=== PATIENT | male | born 1985 | race Caucasian/White ===

== ENCOUNTER 2023-07-13 18:57 | Emergency (ER) | payer SELFPAY ==
[2023-07-13] VITALS (20 sets, daily range): BP systolic 122–157; BP diastolic 86–108; PULSE 84–112; RESP 19–24; TEMP 37.1; O2SAT 92–99
--- NOTE | ~2023-07-13 | XR_ITS ---
EXAMINATION: XR chest 1V portable DATE: 07/13/2023 19:22 INDICATION: Shortness of breath. COVID. TECHNIQUE: frontal view of the chest was obtained. COMPARISON: None FINDINGS: The lungs are clear with no focal airspace opacities, pulmonary edema, pleural effusion or pneumothor ax. The cardiomediastinal silhouette is normal. Mild lower thoracic levocurvature. IMPRESSION: 1. No acute cardiopulmonary disease. Reviewed, dictated and finalized at location A. [facility]
--- NOTE | 2023-07-13 19:05 | ED.URI ---
HPI - URI/Sore Throat General Chief Complaint: Upper Respiratory Infection Stated Complaint: Covid Time Seen by Provider: 07/13/23 19:03 Source: patient Mode of arrival: ambulatory Limitations: no limitations History of Present Illness HPI Narrative: patient is a 38-year-old male with shortness of breath and 2 home positive COVID tests. MD elicited complaint: cough, nasal congestion and sinus pain Onset (ago): day(s) (4) Consistency: constant Severity: moderate Pain scale (0-10): 5 Description of mucous: clear Able to tolerate fluids by mouth: Yes Exacerbating factors: nothing Relieving factors: nothing Context: sick contacts ( roommate with same symptoms and COVID tests positive as well) Associated symptoms: chills, myalgias, headache, nasal congestion and shortness of breath Treatments prior to arrival: none Related Data Allergies Allergy/AdvReac Type Severity Reaction Status Date / Time aspirin Allergy Unknown Verified 07/13/23 20:49 chloropyramine AdvReac Unknown Verified 07/13/23 20:49 chlorpheniramine AdvReac Unknown Verified 07/13/23 20:49 ciprofloxacin [From Cipro] AdvReac Unknown Verified 07/13/23 20:49 decamethonium AdvReac Unknown Verified 07/13/23 20:49 haloperidol [From Haldol] AdvReac Unknown Verified 07/13/23 20:49 ketamine AdvReac Unknown Verified 07/13/23 20:49 ketorolac [From Toradol] AdvReac Unknown Verified 07/13/23 20:49 metoclopramide [From Reglan] AdvReac Unknown Verified 07/13/23 20:49 metronidazole [From Flagyl] AdvReac Unknown Verified 07/13/23 20:49 promethazine AdvReac Unknown Verified 07/13/23 20:49 quetiapine AdvReac Unknown Verified 07/13/23 20:49 Review of Systems Review of Systems: All systems reviewed & are unremarkable except as noted in HPI and below Constitutional: Constitutional: Reports no additional constitutional complaints Eyes: Eyes: Reports no additional eye complaints ENT: Reports system reviewed and no additional complaints, except as documented Cardiovascular: Cardiovascular: Reports no additional cardiovascular complaints Respiratory: Respiratory: Reports no additional respiratory complaints Gastrointestinal: Gastrointestinal: Reports no additional gastrointestinal complaints Genitourinary: Genitourinary: Reports no additional male genitourinary complaints Musculoskeletal: Musculoskeletal: Reports no additional musculoskeletal complaints Integumentary/Breasts: Skin/Breast: Reports system reviewed and no additional complaints, except as docu Neurologic: Reports system reviewed and no additional complaints, except as documented Psychiatric: Psychiatric: Reports no additional psychiatric complaints Endocrine: Endocrine: Reports no additional endocrine complaints Hematologic/Lymphatic: Hematologic/Lymphatic: Reports no additional hematologic/lymphatic complaints Allergic/Immunologic: Allergic/Immunologic: Reports no additional allergic/immunologic complaints Exam Const: General: healthy appearing Nutritional Appearance: well nourished Orientation/consciousness: patient oriented x3 HENMT: Head: normal to inspection Ears: external ears normal Face/Nose/Sinus: Normal external nose present Eyes: Conjunctivae: conjunctivae normal Pupils: Equal, round and reactive pupils present EOM: EOMs intact bilaterally Neck: Neck: normal visual inspection Chest: Chest palpation & inspection: normal inspection of the chest Resp: Effort & Inspection: normal respiratory effort Auscultation: clear to auscultation bilaterally, no crackles, no rales and no rhonchi Cardio: Rate: regular rate Rhythm: regular rhythm Heart sounds: no murmurs GI: Inspection: non-distended GI Palp: Yes Soft to palpation, No Tenderness to palpation present (GI) and No Guarding due to palpation present (GI) Auscultation: normal bowel sounds : General: Yes bladder normal to palpation Back/Spine/Pelvis: Back: no CVA tenderness Skin: General skin exam: normal color Rashes: no rashe
[2023-07-13 19:56] LABS: Hemoglobin 13.9 g/dL (14.0-18.0); Mean Corpuscular HGB Conc 33.1 g/dL (32.0-36.0); Mean Corpuscular Hemoglobin 28.7 pg (27.0-31.0); Mean Corpuscular Volume 86.6 fL (78.0-102.0); Mean Platelet Volume 10.4 fl (8.7-11.0); Platelet Count Result 164 K/mm3 (150-420); Red Blood Count 4.85 M/mm3 (4.70-6.10); Red Cell Distribution Width 14.5 % (11.6-14.4); White Blood Count 4.3 K/mm3 (4.8-10.8)
[2023-07-13 20:11] LABS: Alanine Aminotransferase 32 U/L (16-63); Albumin Level 3.4 g/dL (3.4-5.0); Alkaline Phosphatase 138 U/L (46-116); Anion Gap 12 mmol/L (8-16); Aspartate Amino Transferase 11 U/L (15-37); Bilirubin,Total 0.9 mg/dL (0.00-1.00); Blood Urea Nitrogen 11 mg/dL (7-18); Calcium 8.5 mg/dL (8.5-10.1); Carbon Dioxide 27 mmol/L (21-32); Chloride 103 mmol/L (98-108); Estimated CRCL calculation 98 ml/min; Estimated Glomerular Filt Rate > 60; Glucose 122 mg/dL (70-99); Osmolality Calculated 294 mOsm/kg (285-295); Sodium 142 mmol/L (136-145); Total Protein 6.3 g/dL (6.4-8.2)
[2023-07-13 20:16] LABS: Atypical Lymphocytes Present; Band Neutrophils Percent 0 % (0-6); Eosinophils Absolute Manual 0.08 K/mm3 (0.02-0.5); Eosinophils Percent Manual 2 % (1-6); Giant Platelets Present; Large Platelets Present; Lymphocytes Absolute Manual 0.38 K/mm3 (1.1-4.5); Lymphocytes Percent Manual 9 % (18-44); Monocytes Absolute Manual 0.43 K/mm3 (0.1-0.90); Monocytes Percent Manual 10 % (3-9); Neutrophils Absolute Manual 3.39 K/mm3 (1.3-6.7); Neutrophils Percent Manual 79 % (46-73); Platelet Estimate Adequate (Adequate); Schistocytes None Seen (NORMAL); Total Cells Counted 100
--- NOTE | 2023-07-13 20:27 | PC.NURSE ---
pt resting , no needs at this time. awaiting lab results.
[2023-07-13 20:34] LABS: Influenza A QL RT-PCR Negative (Negative); Influenza B QL RT-PCR Negative (Negative); SARS-CoV-2 RNA PCR Positive (Negative)
[2023-07-13 20:39] LABS: RSV RNA, RT-PCR Negative (Negative)
[2023-07-13] MEDS: ALBUTEROL SULFATE (*SP) INHALER 2 PUFF INHALATION (20:52)
[2023-07-13] MEDS: POTASSIUM CHLORIDE 20 MEQ PACKET (FOR LIQUID) 40 MEQ PO (20:59)
== END 2023-07-13 21:08 | disposition home or self-care (01) ==
PROVIDERS: Emergency Provider Emergency Medicine
DX: U07.1 COVID-19 (principal)
CPT/HCPCS: 36415; 71045; 80053; 85025; 87637; 94640; 99283; A9270

== ENCOUNTER 2025-03-29 17:05 | Inpatient (IN) | payer MEDICARE, SELFPAY ==
--- NOTE | ~2025-03-29 | CT_ITS ---
EXAMINATION: CT abdomen pelvis wo con DATE: 03/29/2025 20:03 INDICATION: crohn's disease, + blood in stool TECHNIQUE: Computed tomography (CT) of the abdomen and pelvis was performed without intravenous contr ast. Automated exposure control and iterative reconstruction technique were employed. The dose-length product was 1190.45 mGy-cm. COMPARISON: None. FINDINGS: Lower thorax: Mild bilateral lower lobe scarring. Liver: Normal. Biliary/Gallbladder: Gallbladder is normal. No bile duct dilation. Pancreas: No mass or duct dilation. Spleen: Normal. Adrenals:No mass. Kidneys: No suspicious mass, obstructing stone, or hydronephrosis. GI tract: No small or large bowel dilation. Surgically absent appendix. Sigmoid diverticulosis. Very mild inflammatory stranding surrounding a distal sigmoid diverticulum in the deep pelvis, with very m inimal associated pericolonic stranding. Status post right colectomy. Uncomplicated anastomosis. Mesentery/Peritoneum: No ascites, mass, or free air. Retroperitoneum: No mass. Pelvis: Pelvic organs are within normal limits. Soft Tissues: Soft tissues and body wall unremarkable. Bones: No acute osseous finding. IMPRESSION: Very mild diverticular and pericolonic inflammatory change at the distal sigmoid in the deep pelvis, which may represent early/mild diverticulitis. Otherwise, no acute abdominopelvic process detected Reviewed, dictated and finalized at location K. IMPRESSION: Very mild diverticular and pericolonic inflammatory change at the distal sigmoi d in the deep pelvis, which may represent early/mild diverticulitis. Otherwise, no acute abdominopelvic process detected
--- NOTE | ~2025-03-29 | MR_ITS ---
EXAMINATION: MR MRCP wo/w con/w 3D wo ind DATE: 03/30/2025 14:04 INDICATION: Primary sclerosing cholangitis TECHNIQUE: Magnetic resonance imaging (MRI) of the abdomen was performed without and with 20 mL Multi maricarmen intravenous contrast. Sequences included coronal T2-weighted SS-FSE, coronal T2-weighted FS SS- FSE, coronal T2-weighted FS FIESTA, axial T2-weighted FS FIESTA, axial T2-weighted FIESTA, sagittal T 2-weighted SS-FSE, axial T1-weighted dual-echo FSPGR, axial T2-weighted SS-FSE, axial T1-weighted LAV A, axial T2-weighted STIR FSE. Thick-slab T2-weighted FRFSE-XL images were obtained for magnetic reso nance cholangiopancreatography (MRCP). Rotating maximum intensity projection 3-D reconstructions of t he volumetric data were created by the technologist. Postcontrast sequences included a time course of axial T1-weighted LAVA. COMPARISON: None. FINDINGS: ABDOMEN MRI: Heart size is normal. No pericardial or pleural effusion. Mild discoid atelectasis in the bilateral l ower lobes. Status post cholecystectomy. Liver, spleen, pancreas, bilateral adrenal glands and kidney s are normal. Postoperative change of right hemicolectomy with ileocolic anastomosis in the right abd omen. No bowel obstruction or evident abnormal bowel wall thickening. Bones are unremarkable with nor mal marrow signal throughout. ABDOMEN MRCP: Common bile duct measures up to 6 mm in maximal diameter which is within normal limits particularly p ost cholecystectomy. The common bile duct tapers smoothly with no evident choledocholithiasis. Intrah epatic biliary tree appears normal with no evident ductal dilation. IMPRESSION: 1. Status post cholecystectomy and right hemicolectomy with ileocolic anastomosis. Otherwise unremark able MRI/MRCP. Reviewed, dictated and finalized at location A. IMPRESSION: 1. Status post cholecystectomy and right hemicolectomy with ileocolic anastomos is. Otherwise unremarkable MRI/MRCP.
--- OUTSIDE RECORDS SUMMARY | 2025-03-29 17:07 | XMS_ITS | Clinical Summary ---
Author Organization [facility] Address [address] [place] [address] Care Team Providers Care Senior Process Engineer Name Role Phone Jaguar Vital MD Primary Care Provider Allergies Active Allergy Reactions Criticality Noted Date Comments Aspirin Nausea Only 12/15/2014 Dicyclomine 01/10/2018 Reaction: Out of body experience; psychosis Ciprofloxacin (Bulk) Diarrhea Low 08/30/2016 Pt requested this be added to his allergies Prochlorperazine 06/26/2020 Haloperidol Lactate 06/26/2020 Metronidazole Diarrhea Low 08/30/2016 Pt requested this be added to his allergy list Promethazine Other (See Comments) 10/15/2017 Pt has a manic reaction Quetiapine Other (See Comments) Low 01/18/2020 Medications escitalopram oxalate (LEXAPRO) 10 MG tablet TAKE 1 TABLET BY MOUTH EVERY DAY 0 Active famotidine (PEPCID) 20 mg tablet Take by mouth daily. Active pregabalin (LYRICA) 75 MG capsule Take by mouth. Active trazodone (DESYREL) 50 MG tablet TAKE 1/2 TABLET AT NIGHT NEEDED FOR INSOMNIA 0 Active hydrOXYzine (ATARAX) 25 MG tablet Take 25 mg by mouth. 0 Active bismuth subsalicylate (PEPTO-BISMOL) 262 mg/15 mL suspension Take 15 mL by mouth. Active calcium carbonate (TUMS) 200 mg calcium (500 mg) chewable tablet Chew 2 tablets. Active loperamide (IMODIUM A-D) 2 mg tablet Take 4 mg by mouth. Active ondansetron (ZOFRAN) 8 MG tablet Take 8 mg by mouth. 0 Active duloxetine (CYMBALTA) 60 MG capsule TAKE 1 CAPSULE BY MOUTH EVERY DAY 0 Active morphine (MS CONTIN) 15 MG 12 hr tablet Take 1 tablet (15 mg total) by mouth 2 (two) times a day. accept 5 Active pregabalin (LYRICA) 150 MG capsule Take 1 capsule (150 mg total) by mouth 3 times a day. 5 Active morphine (MS CONTIN) 15 MG 12 hr tabletIndications: Chronic, continuous use of opioids,Other chronic pain Take 1 tablet (15 mg total) by mouth 2 (two) times a day for 30 days. 60 tablet 5 04/09/20 25 Active Active Problems Problem Noted Date Diagnosed Date Crohn's disease (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 v28) 12/30/2012 06/27/2020 Encounters Date Type Department Care Team Description 03/10/2025 Telephone [facility] [address] [facility] [address] [place] [address] [facility] Change from Last 3 Months Immunizations Immunization Administration Dates Next Due Influenza >= 6 months IM 06/28/2020(Defe rred: Patient Refused),06/24/2020(Deferred: Patient Refused) Social History Tobacco Use Types Packs/Day Years Used Date Smoking Tobacco: Former Smokeless Tobacco: Never Comments:1 cig/ 2 months Alcohol Use Standard Drinks/Week Comments Yes 0 (1 standard drink = 0.6 oz pur e alcohol) rarely Sex and Gender Information Value Date Recorded Sex Assigned at Male 06/22/2020 5:41 AM EDT Legal Sex Male 2:11 AM EDT Gender Identity Transgender Female 02/15/2025 11 :53 AM EDT Sexual Orientation Pansexual 02/15/2025 11 :53 AM EDT Last Filed Vital Signs Vital Sign Reading Time Taken Comments Blood Pressure 137/89 01/01/2021 12:34 AM EDT Pulse 79 01/01/2021 12:34 AM EDT Temperature 36.7 C (98 F) 01/01/2021 12:34 AM EDT Respiratory Rate 16 01/01/2021 12:34 AM EDT Oxygen Saturation 97% 01/01/2021 12:34 AM EDT Inhaled Oxygen Concentration - - Weight 95.1 kg (209 lb 8.8 oz) 12/31/2020 10:12 PM EDT Height 182.9 cm (6') 12/31/2020 10:12 PM EDT Body Mass Index 28.42 12/31/2020 10:12 PM EDT Plan of Treatment Upcoming Encounters Date Type Department Care Team (Late st Contact Info) Description 04/11/2025 1:20 PM EDT Office Visit [facility] [address] [facility] [address] [place] [address] Charles Jurado MD [address] [facility] [address] [place] [address] Juan Manuel Transfer-follow up Health Maintenance Due Date Last Done Comments HIV 1984 Hepatitis C antibody 1984 DTaP/Tdap/Td vaccines (1 - Tdap) 1995 HPV vaccines (1 - 3-dose series) 1999 Hepatitis A vaccines (1 of 2 - Risk 2-dose series) 2003 Hepatitis B vaccines (1 of 3 - 19+ 3-dose series) 2003 HPV TEST 2009 Influenza vaccines (#1) 2025 07/01/2019 Hib vaccines Aged Out No longer eligi ble based on patient's age to complete this topic Meningococcal ACWY vaccines Aged Out No longer eligible based on patient's age to complete this topic Pneumococcal vaccines 0-49 yrs Aged Out No longer eligible based on patient's age to complete this topic Polio vaccines Aged Out No longer nicolasa gible based on patient's age to complete this topic Insurance MEDICARE PART A AND B [employer] MEDICARE HMO (MEDICARE ADVANTAGE PLAN)-OUT [place] [address] Advance Directives * Full Code (Latest Code Status on File) Date Activated Date Inactivated Comments 06/27/2020 12:20 AM 06/28/2020 10:56 PM * Full Code Date Activated Date Inactivated Comments 06/22/2020 6:44 AM 06/24/2020 9:15 PM Care Teams Senior Process Engineer Relationship Specialty Start Date End Date Jaguar Vital MD [address] [place], [place] [id number] PCP - General 05/10/20
--- OUTSIDE RECORDS SUMMARY | 2025-03-29 17:07 | XMS_ITS | Continuity of Care Document ---
Author Organization [facility] Address [address] [place] [address] Phone Care Team Providers Care Finisher Card Tender Name Role Phone Faraz Blood MD, FACC Unavailable Unavaila ble Allergies, Adverse Reactions, Alerts Substance Reaction Status Criticality aspirin dizziness, off balance Active No In formation WARNIN allergy(ies) could not be collected because the type is not supported. Please contact the source practice for further details. Medications Medication Instructions Dosage Effective Dates (start - stop) Status Comments Asacol 400 mg Tab Take one tablet by m outh every eight hours - Active Procedures Procedure Date Offic/outpt E&m Estab Low-mod 7 Offic/outpt E&m Estab Low-mod 6 Preven Meds E m Estab Pt;Est Patient 18- 39 Prevent Ua Dip Stik/tablt;wo MicrUrinalysis Routine Venipunct/finger/Blood Draw Advance Directives Directive Yes / No Effective Date File Name No Information Encounters Encounter Description Practice Location Reason(s) For Visit Diagnoses Date Provider Providers Copied on Encounter [facility], [address] [place], [place], [id number], tel:[phone] [facility] No Information 7 Caitie Ruth. [address] [place], [place], [id number], [place]. tel:[phone] Offic/outpt E&m Estab Low-mod [facility], [address] [place] [address], [id number], tel:[phone] [facility] Shoulder PainCervicalgia 3200 7 No Information Offic/outpt E&m Estab Low-mod [facility], [address] [place] [address], [id number], tel:[phone] [facility] Asthma W/o Status AsthmRegional Enteritis NosElevated CRP (C-reactive Prot)Cervicalgia Sep-2 2-200 6 No Information Referring Provider: Rupali Persaud, [address] [place] [address], [id number] . tel:[phone] Preven Meds E m Estab Pt;Est Patient 18-39 Prevent [facility], [address] [place] [address], [id number], tel:[phone] [facility] No Information Aug-2 1-200 5 No Information [facility], [address] [place] [address], [id number], tel:[phone] [facility] No Information Aug- 4-200 5 No Information [facility], [address] [place] [address], [id number], tel:[phone] [facility] No Information 8200 2 No Information Family History Family Member Type Diagnosis Age At Onset No Information Immunizations Vaccine Date Status Comments MMR administered Source: [facility] unization Record MCV4 administered Source: [facility] unization Record Payers Payer name Insurance type Covered alliance party ID Authoriza tion(s) No Information Social History Type Description Quantity Date Captured Comments Sex Male Smoking Status No Information Chief Complaint And Reason For Visit No Information Reason For Referral Reason For Referral No Information History Of Present Illness Encounter Date Complaint History Of Prese nt Illness No Information Functional Status Date Functional Assessmen t No Information Instructions Date Instruction Additional Infor mation No Information Assessments Type Assessment Date No Information Patient Care Teams Name Effective Dates (start - stop) Status Members No Information
[2025-03-29 17:08] VITALS: BP 176/98; PULSE 84; RESP 16; TEMP 36.6; O2SAT 100
--- OUTSIDE RECORDS SUMMARY | 2025-03-29 17:08 | XMS_ITS | Clinical Summary ---
Author Organization [facility] Address [address] [facility] [place] [address] Care Team Providers Care It Sales Executive Name Role Phone Unavailable Primary Care Provider Unavailabl e Allergies Active Allergy Reactions Criticality Noted Date Comments Aspirin Other Medium 01/20/2018 Ciprofloxacin Diarrhea Low 01/20/2018 Dicyclomine Other Medium 01/20/2018 Metronidazole Diarrhea Low 01/20/2018 Medications azithromycin (ZITHROMAX) 250 mg tablet Take 1 tablet (250 mg total) by mouth daily. 01/21/2018 Active Social History Tobacco Use Types Packs/Day Years Used Date Smoking Tobacco: Never Smokeless Tobacco: Never Alcohol Use Standard Drinks/Week Comments No 0 (1 standard drink = 0.6 oz pur e alcohol) Sex and Gender Information Value Date Recorded Sex Assigned at Not on file Legal Sex Male 5:34 AM EST Gender Identity Not on file Sexual Orientation Not on file Plan of Treatment Not on file
--- OUTSIDE RECORDS SUMMARY | 2025-03-29 17:08 | XMS_ITS | Patient Health Record ---
Author Organization [facility] Address [address] [place] [address] Care Team Providers Care Service Tech Name Role Phone Lucero Elias Unavailable [phone] Gwendolyn Jurado Unavailable [phone] Reason For Referral No Information Medications Medication SIG (Take, Route, Frequency, Duration) Notes Start Date End Date Status Morphine Sulfate ER 15 MG TAKE 1 TABLET BY MOUTH TWICE DAILY. 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 Problem Chronic pain (23316202) Other chronic pain (G89.29) Active confirmed Problem Crohn's disease of large bowel (5402153) Crohn's disease of large intestine with unspecified complications (K50.119) Active confirmed Problem Crohn's disease (88079905) Crohn's disease, unspecified, with other complication (K50.918) Active confirmed Problem Adverse reaction caused by drug (70368697) Adverse effect of antineoplastic and immunosuppressive drugs, initial encounter (T45.1X5A) Active confirmed Problem High risk drug monitoring status (430572923) supervisor intermediates (current) use of opiate analgesic (Z79.891) Active confirmed Problem Neuropathic pain (212711679) Neuropathic pain (M79.2) Active confirmed Problem Acute pain of ri ght knee (M25.561) Active confirmed Problem Generalized abdominal pain (791086478) Abdominal pain, generalized (R10.84) Active confirmed Vital Signs Blood pressure diastolic 88 mm Hg 08/03/2024 Blood pressure systolic 140 mm Hg 08/03/2024 Encounters Encounter Location Date Provider Diagnosis [facility] [address] [place] [id number] 11/22/2024 Lucero Elias Abdominal pain, generalized R10.84 ; Other chronic pain G89.29 ; Drug-induced polyneuropathy G62.0 and Adverse effect of antineoplastic and immunosuppressive drugs, initial encounter T45.1X5A [facility] [address] [place] [id number] 09/28/2024 Lucero Elias Abdominal pain, generalized R10.84 ; Other chronic pain G89.29 ; Drug-induced polyneuropathy G62.0 and Adverse effect of antineoplastic and immunosuppressive drugs, initial encounter T45.1X5A [facility] [address] [place] [phone] 08/03/2024 Gwendolyn Jurado Drug-induced polyneuropathy G62.0 ; Other chronic pain G89.29 ; Adverse effect of antineoplastic and immunosuppressive drugs, initial encounter T45.1X5A ; Abdominal pain, generalized R10.84 and supervisor intermediates (current) use of opiate analgesic Z79.891 [facility] [address] [place] [phone] 06/08/2024 Gwendolyn Jurado Acute pain of right knee M25.561 ; Other chronic pain G89.29 and Abdominal pain, generalized R10.84 Assessments Encounter Date Diagnosis (ICD Code) Assessment Notes Treatment Notes Treatment Clinical Notes Section Notes 06/08/2024 Other chronic pain (ICD-10 - G89.29) 06/08/2024 Acute pain of right knee (ICD-10 - M25.561) 08/03/2024 Drug-induced polyneuropathy (ICD-10 - G62.0) 08/03/2024 Other chronic pain (ICD-10 - G89.29) 09/28/2024 Other chronic pain (ICD-10 - G89.29) 09/28/2024 Abdominal pain, generalized (ICD-10 - R10.84) 11/22/2024 Other chronic pain (ICD-10 - G89.29) 11/22/2024 Abdominal pain, generalized (ICD-10 - R10.84) 09/28/2024 Drug-induced polyneuropathy (ICD-10 - G62.0) 11/22/2024 Drug-induced polyneuropathy (ICD-10 - G62.0) 08/03/2024 Adverse effect of antineoplastic and immunosuppressive drugs, initial encounter (ICD-10 - T45.1X5A) 06/08/2024 Abdominal pain, generalized (ICD-10 - R10.84) 08/03/2024 Abdominal pain, generalized (ICD-10 - R10.84) 09/28/2024 Adverse effect of antineoplastic and immunosuppressive drugs, initial encounter (ICD-10 - T45.1X5A) 11/22/2024 Adverse effect of antineoplastic and immunosuppressive drugs, initial encounter (ICD-10 - T45.1X5A) 08/03/2024 supervisor intermediates (current) use of opiate analgesic (ICD-10 - Z79.891) Plan Of Treatment No Information Insurance Providers Payer Name Payer Address Payer Phone Subscriber Number Group Number Insured Name Patient Relationship to Insured Coverage Start Date Coverage End Date [employer] Plus [address] [address] [place] [address] [id number] GWENDOLYN BAUTISTA Self - patient is the insured
[2025-03-29 18:54] VITALS: BP 154/106; PULSE 83; RESP 17; O2SAT 98
--- NOTE | 2025-03-29 19:04 | ED.GIBLEED ---
HPI - GI Bleed General Chief complaint: GI Bleed <Emelina Gerard [employer] SALESPERSON - Last Filed: 03/29/25 19:07> Stated complaint: GI bleed- I have crohn's disease. <Emelina Gerard [employer] SALESPERSON - Last Filed: 03/29/25 19:07> Time Seen by Provider: 03/29/25 19:00 <Emelina Gerard [employer] SALESPERSON - Last Filed: 03/29/25 19:07> Focused HPI: Patient is a 40-year-old male who presents to the ER with rectal bleeding and abdominal pain. He reports he has a history of Crohn's disease and was hospitalized approximately 1 week ago for similar symptoms. Patient reports he has major bleeding in his stool and is passing clots. He endorses pain is left lower quadrant, ?where my anastomosis is located. Patient endorses a history of Crohn's, testicular cancer, chronic narcotic use, and PSE-an autoimmune disease. He denies any urinary symptoms, recent fevers, chest pain, or shortness of breath. GENERAL: Well-appearing, well-nourished, and in no acute distress. HEAD: Normocephalic, atraumatic. CHEST: Clear to auscultation. ?No respiratory distress. HEART: Regular rate and rhythm.? NEURO: ?Alert and oriented x3. Patient screened in triage and initial orders placed.? ?Additional care and disposition to be based upon?diagnostic testing and treatment. <Emelina Gerard [employer] SALESPERSON - Last Filed: 03/29/25 19:07> Focused HPI: Patient is a 40-year-old male who presents to the ER with rectal bleeding and abdominal pain. He reports he has a history of Crohn's disease and was hospitalized approximately 1 week ago for similar symptoms. Patient reports he has major bleeding in his stool and is passing clots. He endorses pain is left lower quadrant, ?where my anastomosis is located. Patient endorses a history of Crohn's, testicular cancer, chronic narcotic use, and PSE. He denies any urinary symptoms, recent fevers, chest pain, or shortness of breath. GENERAL: Well-appearing, well-nourished, and in no acute distress. HEAD: Normocephalic, atraumatic. CHEST: Clear to auscultation. ?No respiratory distress. HEART: Regular rate and rhythm.? NEURO: ?Alert and oriented x3. Patient screened in triage and initial orders placed.? ?Additional care and disposition to be based upon?diagnostic testing and treatment. <Joanne Pool PA-C - Last Filed: 03/29/25 23:59> Related Data Home medications: Home Medications ?Medication ?Instructions ?Recorded ?Confirmed ?Last Taken ?Type estradiol 2 mg tablet 4 mg PO BID 03/30/25 03/30/25 03/29/25 History famotidine 20 mg tablet 20 mg PO BID PRN gastric reflux 03/30/25 03/30/25 Unknown History hydroxyzine HCl 25 mg tablet 25 mg PO Q6H PRN anxiety 03/30/25 03/30/25 03/28/25 History morphine 15 mg tablet,extended 15 mg PO Q12H PRN pain (scale 03/30/25 03/30/25 03/29/25 History release score 7-10) omeprazole 40 mg capsule,delayed 40 mg PO DAILY 03/30/25 03/30/25 03/28/25 History release oxycodone 5 mg tablet 5 mg PO BID PRN pain 03/30/25 03/30/25 03/28/25 History prednisone 20 mg tablet 20 mg PO DAILY 03/30/25 03/30/25 03/28/25 History pregabalin 150 mg capsule 150 mg PO TID 03/30/25 03/30/25 03/29/25 History progesterone 100 mg PO DAILY 03/30/25 03/30/25 03/29/25 History spironolactone 50 mg tablet 100 mg PO DAILY 03/30/25 03/30/25 03/29/25 History tizanidine 4 mg tablet 4 mg PO Q8H 03/30/25 03/30/25 Unknown History trazodone 50 mg tablet 50 mg PO HS PRN sleep 03/30/25 03/30/25 Unknown History <Emelina Gerard, EFREN - Last Filed: 03/29/25 19:07> Allergies/Adverse reactions: Allergies Allergy/AdvReac Type Severity Reaction Status Date / Time dicyclomine (From Bentyl) Allergy Severe Agitated Verified 03/30/25 03:06 aspirin Allergy Unknown Verified 07/13/23 20:49 chloropyramine AdvReac Unknown Verified 07/13/23 20:49 chlorpheniramine AdvReac Unknown Verified 07/13/23 20:49 ciprofloxacin (From Cipro) AdvReac Unknown Verified 07/13/23 20:49 decamethonium AdvReac Unknown Verified 07/13/23 20:49 haloperidol (From Haldol) AdvReac Unknown Verified 07/13/23 20:49 ketamine AdvReac Unknown Verified 07/13/23 20:49 ketorolac (From Toradol) AdvReac Unknown Verified 07/13/23 20:49 metoclopramide (From Reglan) AdvReac Unknown Verified 07/13/23 20:49 metronidazole (From Flagyl) AdvReac Unknown Verified 07/13/23 20:49 promethazine AdvReac Unknown Verified 07/13/23 20:49 quetiapine AdvReac Unknown Verified 07/13/23 20:49 <Emelina Gerard APRN - Last Filed: 03/29/25 19:07> Review of Systems Review of Systems: All systems reviewed & are unremarkable except as noted in HPI and below <Joanne Pool PA-C - Last Filed: 03/29/25 23:59> PMFSH Past Medical History Medical History: Medical History (Updated 03/29/25 @ 23:56 by Joanne Pool PA-C) Crohn disease <Emelina Gerard APRN - Last Filed: 03/29/25 19:07> Surgical History Surgical History: Surgical History (Updated 03/29/25 @ 23:00 by Joanne Pool PA-C) History of partial colectomy <Emelina Gerard APRN - Last Filed: 03/29/25 19:07> Social History Social History: Social History Smoking status: Never smoker Second hand tobacco smoke exposure: No Alcohol intake: never Substance use: never Substance use type: does not use Do You Feel Safe in your Home?: Yes Lack of Transportation: No Lack of Food: Never True Current Housing: I Have Housing Concerned About Future Housing: No Difficulty Paying Gas/Electric Bills: No Difficulty Paying for Meds: No Currently Unemployed: No Education: Master's Degree or Higher Difficulty w/ Childcare or Family Care: No Spiritual care concerns: No <Emelina Timo Gerard APRN - Last Filed: 03/29/25 19:07> Exam Narrative: GENERAL: Well-appearing, well-nourished, and in no acute distress. HEAD: Normocephalic, atraumatic. EYES: EOMI. CHEST: Clear to auscultation. No respiratory distress. No wheezes rales or rhonchi HEART: Regular rate and rhythm. No murmur heard. Normal peripheral pulses. ABDOMEN: Soft, nondistended, normal active bowel sounds. Tender to palpation in the left lower quadrant without guarding EXTREMITIES: Normal range of motion. No edema. SKIN: Warm, dry, no rash. NEURO: No focal deficits. Alert and oriented x3. PSYCH: Normal mood and affect RECTAL: No active bleeding. Hemoccult positive <Joanne Pool PA-C - Last Filed: 03/29/25 23:59> Course Course Emergency Course: Patient updated on his workup and recommendation for admission <Joanne Pool PA-C - Last Filed: 03/29/25 23:59> HUMAN RESOURCE INTERN/PA Physician Supervision This visit was performed by both a physician and an APC. I performed all aspects of the MDM as documented. <Randal Fontenot MD - Last Filed: 03/30/25 07:08> Consultations Consultation #1: Spoke with Dr. Christopher about patient and workup. Recommends Solu-Medrol 60mg daily; check c. diff, stool calprotectin, and crp. He will see him in the morning <Joanne Pool PA-C - Last Filed: 03/29/25 23:59> Date: 03/29/25 <ZACKERY Beckman Last Filed: 03/29/25 23:59> Consultation #2: Spoke with hospitalist about patient and workup who accepts admission <Joanne Pool PA-C - Last Filed: 03/29/25 23:59> Date: 03/29/25 <Joanne Pool PA-C - Last Filed: 03/29/25 23:59> Vital Signs Vital signs: Vital Signs Temperature 36.6 C 03/29/25 17:08 Pulse Rate 84 03/29/25 17:08 Respiratory Rate 16 03/29/25 17:08 Blood Pressure 176/98 H 03/29/25 17:08 Pulse Oximetry 100 03/29/25 17:08 Oxygen Delivery Room Air 03/29/25 17:08 Temperature 36.3 C L 03/30/25 05:14 Pulse Rate 75 03/30/25 05:14 Respiratory Rate 18 03/30/25 05:14 Blood Pressure 109/65 03/30/25 05:14 Pulse Oximetry 97 03/30/25 05:14 Oxygen Delivery Room Air 03/29/25 17:08 <Emelina Gerard, [employer] SALESPERSON - Last Filed: 03/29/25 19:07> Vital Signs Temperature 36.6 C 03/29/25 17:08 Pulse Rate 84 03/29/25 17:08 Respiratory Rate 16 03/29/25 17:08 Blood Pressure 176/98 H 03/29/25 17:08 Pulse Oximetry 100 03/29/25 17:08 Oxygen Delivery Room Air 03/29/25 17:08 Temperature 36.3 C L 03/30/25 05:14 Pulse Rate 75 03/30/25 05:14 Respiratory Rate 18 03/30/25 05:14 Blood Pressure 109/65 03/30/25 05:14 Pulse Oximetry 97 03/30/25 05:14 Oxygen Delivery Room Air 03/29/25 17:08 <CHAUNCEY Beckman-C - Last Filed: 03/29/25 23:59> Vital Signs Temperature 36.6 C 03/29/25 17:08 Pulse Rate 84 03/29/25 17:08 Respiratory Rate 16 03/29/25 17:08 Blood Pressure 176/98 H 03/29/25 17:08 Pulse Oximetry 100 03/29/25 17:08 Oxygen Delivery Room Air 03/29/25 17:08 Temperature 36.3 C L 03/30/25 05:14 Pulse Rate 75 03/30/25 05:14 Respiratory Rate 18 03/30/25 05:14 Blood Pressure 109/65 03/30/25 05:14 Pulse Oximetry 97 03/30/25 05:14 Oxygen Delivery Room Air 03/29/25 17:08 <Randal Fontenot MD - Last Filed: 03/30/25 07:08> MDM - GI Bleed MDM Narrative Medical decision making narrative: Patient presents the emergency department for abdominal pain, bloody stools. History of Crohn's. Patient is afebrile and nontoxic appearing. His vitals are stable. CBC with leukocytosis to 11.3. Metabolic panel without concerning findings. Patient is Hemoccult positive. CT abdomen and pelvis showing inflammatory change of the distal sigmoid colon in the deep pelvis. Patient given a dose of Zosyn in the ER. Spoke with Dr. Christopher about patient and workup. Recommends Solu-Medrol 60mg daily; check c. diff, stool calprotectin, and crp. He will see him in the morning. Spoke with hospitalist about patient and workup who accepts admission <Joanne Pool PA-C - Last Filed: 03/29/25 23:59> Differential Diagnosis Differential diagnosis: Likely infectious diarrhea and other (IBD) <Jaonne Pool PA-C - Last Filed: 03/29/25 23:59> Lab Data Attestation: I reviewed the patient's lab results. <Joanne Pool PA-C - Last Filed: 03/29/25 23:59> Result diagrams: 03/30/25 05:06 03/29/25 19:05 <Emelina Gerard APRN - Last Filed: 03/29/25 19:07> Labs: Lab Results 03/29/25 Range/Units 19:05 WBC 11.3 H (4.5-10.0) K/mm3 RBC 5.62 (4.6-6.20) M/mm3 Hgb 16.1 (14.0-18.0) g/dL Hct 48.4 (42.0-52.0) % MCV 86.1 (80-100) fl MCH 28.6 (26-34) pg MCHC 33.3 (32-36) g/dl RDW 15.6 H (11.5-14.5) % Plt Count 206 (150-375) k/mm3 MPV 9.9 (7.4-10.4) fl Immature Gran % (Auto) 0.7 H (0-0.5) % Neut % (Auto) 71.3 (45.5-73.1) % Lymph % (Auto) 19.7 (18.3-44.2) % [place] % (Auto) 6.6 (2.6-8.5) % Eos % (Auto) 1.3 (0-4.4) % Baso % (Auto) 0.4 (0.2-1.2) % Lymph # (Auto) 2.23 (0.9-3.2) K/mm3 [place] # (Auto) 0.8 H (0.1-0.6) K/mm3 Eos # (Auto) 0.2 (0-0.3) K/mm3 Baso # (Auto) 0.1 (0.0-0.1) K/mm3 Abs Immat Gran (auto) 0.08 H (0.00-0.031) K/mm3 Absolute Neuts (auto) 8.1 H (1.3-6.7) K/mm3 Absolute Nucleated RBC 0.000 (0.0-0.012) K/mm3 Nucleated RBC % 0.0 (0.0-0.2) % PT 12.6 (11.1-14.7) Seconds INR 0.9 APTT 26.3 (22.3-36.8) Seconds Sodium 140 (137-145) mmol/L Potassium 3.8 (3.4-5.0) mmol/L Chloride 109 H (98-107) mmol/L Carbon Dioxide 22 (22-30) mmol/L Anion Gap 9 (4-12) mmol/L BUN 20 (9-20) mg/dL Creatinine 0.99 (0.7-1.3) mg/dL Estim Creat Clear Calc 109 ml/min Estimated GFR > 60 (59 - ) Glucose 92 (65-110) mg/dL Lactic Acid 1.0 (0.7-2.0) mmol/L Calcium 9.1 (8.4-10.2) mg/dL Magnesium 1.9 (1.6-2.3) mg/dL Total Bilirubin 1.3 (0.2-1.3) mg/dL AST 35 (17-59) U/L ALT 47 (6-50) U/L Alkaline Phosphatase 119 (38-126) U/L C-Reactive Protein 0.8 (<1.0) mg/dL Total Protein 7.4 (6.3-8.2) g/dL Albumin 4.4 (3.5-5.1) g/dL Lipase 60 (23-300) U/L Blood Type A Positive Antibody Screen Negative <Emelina Gerard, [employer] SALESPERSON - Last Filed: 03/29/25 19:07> Lab Results 03/29/25 Range/Units 19:05 WBC 11.3 H (4.5-10.0) K/mm3 RBC 5.62 (4.6-6.20) M/mm3 Hgb 16.1 (14.0-18.0) g/dL Hct 48.4 (42.0-52.0) % MCV 86.1 (80-100) fl MCH 28.6 (26-34) pg MCHC 33.3 (32-36) g/dl RDW 15.6 H (11.5-14.5) % Plt Count 206 (150-375) k/mm3 MPV 9.9 (7.4-10.4) fl Immature Gran % (Auto) 0.7 H (0-0.5) % Neut % (Auto) 71.3 (45.5-73.1) % Lymph % (Auto) 19.7 (18.3-44.2) % [place] % (Auto) 6.6 (2.6-8.5) % Eos % (Auto) 1.3 (0-4.4) % Baso % (Auto) 0.4 (0.2-1.2) % Lymph # (Auto) 2.23 (0.9-3.2) K/mm3 [place] # (Auto) 0.8 H (0.1-0.6) K/mm3 Eos # (Auto) 0.2 (0-0.3) K/mm3 Baso # (Auto) 0.1 (0.0-0.1) K/mm3 Abs Immat Gran (auto) 0.08 H (0.00-0.031) K/mm3 Absolute Neuts (auto) 8.1 H (1.3-6.7) K/mm3 Absolute Nucleated RBC 0.000 (0.0-0.012) K/mm3 Nucleated RBC % 0.0 (0.0-0.2) % PT 12.6 (11.1-14.7) Seconds INR 0.9 APTT 26.3 (22.3-36.8) Seconds Sodium 140 (137-145) mmol/L Potassium 3.8 (3.4-5.0) mmol/L Chloride 109 H (98-107) mmol/L Carbon Dioxide 22 (22-30) mmol/L Anion Gap 9 (4-12) mmol/L BUN 20 (9-20) mg/dL Creatinine 0.99 (0.7-1.3) mg/dL Estim Creat Clear Calc 109 ml/min Estimated GFR > 60 (59 - ) Glucose 92 (65-110) mg/dL Lactic Acid 1.0 (0.7-2.0) mmol/L Calcium 9.1 (8.4-10.2) mg/dL Magnesium 1.9 (1.6-2.3) mg/dL Total Bilirubin 1.3 (0.2-1.3) mg/dL AST 35 (17-59) U/L ALT 47 (6-50) U/L Alkaline Phosphatase 119 (38-126) U/L C-Reactive Protein 0.8 (<1.0) mg/dL Total Protein 7.4 (6.3-8.2) g/dL Albumin 4.4 (3.5-5.1) g/dL Lipase 60 (23-300) U/L Blood Type A Positive Antibody Screen Negative <Joanne Pool PA-C - Last Filed: 03/29/25 23:59> Lab Results 03/29/25 Range/Units 19:05 WBC 11.3 H (4.5-10.0) K/mm3 RBC 5.62 (4.6-6.20) M/mm3 Hgb 16.1 (14.0-18.0) g/dL Hct 48.4 (42.0-52.0) % MCV 86.1 (80-100) fl MCH 28.6 (26-34) pg MCHC 33.3 (32-36) g/dl RDW 15.6 H (11.5-14.5) % Plt Count 206 (150-375) k/mm3 MPV 9.9 (7.4-10.4) fl Immature Gran % (Auto) 0.7 H (0-0.5) % Neut % (Auto) 71.3 (45.5-73.1) % Lymph % (Auto) 19.7 (18.3-44.2) % [place] % (Auto) 6.6 (2.6-8.5) % Eos % (Auto) 1.3 (0-4.4) % Baso % (Auto) 0.4 (0.2-1.2) % Lymph # (Auto) 2.23 (0.9-3.2) K/mm3 [place] # (Auto) 0.8 H (0.1-0.6) K/mm3 Eos # (Auto) 0.2 (0-0.3) K/mm3 Baso # (Auto) 0.1 (0.0-0.1) K/mm3 Abs Immat Gran (auto) 0.08 H (0.00-0.031) K/mm3 Absolute Neuts (auto) 8.1 H (1.3-6.7) K/mm3 Absolute Nucleated RBC 0.000 (0.0-0.012) K/mm3 Nucleated RBC % 0.0 (0.0-0.2) % PT 12.6 (11.1-14.7) Seconds INR 0.9 APTT 26.3 (22.3-36.8) Seconds Sodium 140 (137-145) mmol/L Potassium 3.8 (3.4-5.0) mmol/L Chloride 109 H (98-107) mmol/L Carbon Dioxide 22 (22-30) mmol/L Anion Gap 9 (4-12) mmol/L BUN 20 (9-20) mg/dL Creatinine 0.99 (0.7-1.3) mg/dL Estim Creat Clear Calc 109 ml/min Estimated GFR > 60 (59 - ) Glucose 92 (65-110) mg/dL Lactic Acid 1.0 (0.7-2.0) mmol/L Calcium 9.1 (8.4-10.2) mg/dL Magnesium 1.9 (1.6-2.3) mg/dL Total Bilirubin 1.3 (0.2-1.3) mg/dL AST 35 (17-59) U/L ALT 47 (6-50) U/L Alkaline Phosphatase 119 (38-126) U/L C-Reactive Protein 0.8 (<1.0) mg/dL Total Protein 7.4 (6.3-8.2) g/dL Albumin 4.4 (3.5-5.1) g/dL Lipase 60 (23-300) U/L Blood Type A Positive Antibody Screen Negative <Randal Fontenot MD - Last Filed: 03/30/25 07:08> Imaging Data Radiologist's impression: ITS Impressions Abdomen/Pelvis CT 03/29/25 20:20 IMPRESSION: Very mild diverticular and pericolonic inflammatory change at the distal sigmoid in the deep pelvis, which may represent early/mild diverticulitis. Otherwise, no acute abdominopelvic process detected <Joanne Pool PA-C - Last Filed: 03/29/25 23:59> Critical Care Time Critical Care Time Critical Care Time: No <Joanne Pool PA-C - Last Filed: 03/29/25 23:59> Discharge Plan Discharge Clinical Impression: Acute Crohn's disease Qualifiers: Digestive disease complication type: with rectal bleeding Qualified Code(s): K50.911 - Crohn's disease, unspecified, with rectal bleeding GI bleeding Qualifiers: GI bleed type/associated pathology: anorectal hemorrhage Qualified Code(s): K62.5 - Hemorrhage of anus and rectum <Emelina Gerard APRN - Last Filed: 03/29/25 19:07> Patient Disposition: Still a Patient <Emelina Gerard APRN - Last Filed: 03/29/25 19:07> Condition: Stable <Emelina Gerard APRN - Last Filed: 03/29/25 19:07>
[2025-03-29 19:16] LABS: Hematocrit 48.4 % (42.0-52.0); Hemoglobin 16.1 g/dL (14.0-18.0); Immature Granulocyte Percent A 0.7 % (0-0.5); Lymphocytes Absolute Auto 2.23 K/mm3 (0.9-3.2); Mean Corpuscular HGB Conc 33.3 g/dl (32-36); Mean Corpuscular Hemoglobin 28.6 pg (26-34); Mean Corpuscular Volume 86.1 fl (80-100); Nucleated Red Blood Cells Absolute Auto 0.000 K/mm3 (0.0-0.012); Nucleated Red Blood Cells Perc 0.0 % (0.0-0.2); Platelet Count Result 206 k/mm3 (150-375); Red Blood Count 5.62 M/mm3 (4.6-6.20); White Blood Count 11.3 K/mm3 (4.5-10.0)
[2025-03-29 19:33] LABS: INR 0.9; Partial Thromboplastin Time 26.3 Seconds (22.3-36.8); Prothrombin Time 12.6 Seconds (11.1-14.7)
[2025-03-29 19:39] LABS: Alanine Aminotransferase 47 U/L (6-50); Albumin Level 4.4 g/dL (3.5-5.1); Alkaline Phosphatase 119 U/L (38-126); Anion Gap 9 mmol/L (4-12); Aspartate Amino Transferase 35 U/L (17-59); Bilirubin,Total 1.3 mg/dL (0.2-1.3); Blood Urea Nitrogen 20 mg/dL (9-20); Calcium 9.1 mg/dL (8.4-10.2); Carbon Dioxide 22 mmol/L (22-30); Chloride 109 mmol/L (98-107); Estimated CRCL calculation 109 ml/min; Estimated Glomerular Filt Rate > 60; Glucose 92 mg/dL (65-110); Lipase 60 U/L (23-300); Magnesium 1.9 mg/dL (1.6-2.3); Potassium 3.8 mmol/L (3.4-5.0); Sodium 140 mmol/L (137-145); Total Protein 7.4 g/dL (6.3-8.2)
[2025-03-29 22:44] VITALS: BP 159/100; PULSE 71; RESP 14; TEMP 36.3; O2SAT 100
[2025-03-29 23:01] VITALS: BP 156/133; PULSE 88; RESP 18; O2SAT 98
--- OUTSIDE RECORDS SUMMARY | 2025-03-29 23:03 | XMS_ITS | Clinical Summary ---
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 Adjustment disorder with anxious mood 04/15/2017 Vitamin B12 deficiency 11/07/2015 Vitamin D deficiency 11/07/2015 Resolved Problems Problem Noted Date Diagnosed Date Resolved Date Crohn's colitis ([facility] v28) 06/26/2020 06/27/2020 Colitis 06/22/2020 06/27/2020 Rectal bleed 06/22/2020 06/27/2020 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 TIA (transient ischemic attack) 10/25/2015 06/27/2020 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/30/2012 06/27/2020 Encounters Date Type Department Care Team Description 03/10/2025 Telephone [facility] [address] [place] [address] Emily [facility] Change from [...] Office Visit [facility] [address] [place] [address] Charles Jurado MD [address] [place] [address] Juan Manuel Transfer-follow up Health [...] (MEDICARE ADVANTAGE PLAN)-[place] [address] Advance Directives * Full Code (Latest Code Status on File) Date Activated Date Inactivated Comments 06/27/2020 12:20 AM 06/28/2020 10:56 PM * Full Code Date Activated Date Inactivated Comments 06/22/2020 6:44 AM 06/24/2020 9:15 PM Care Teams Plate Printer Relationship Specialty Start Date End Date Jaguar Vital MD [address] [place], [place] [id number] PCP - General 05/10/20
--- OUTSIDE RECORDS SUMMARY | 2025-03-29 23:04 | XMS_ITS | Continuity of Care Document ---
Author Organization [facility] Address [address] [place] [address] Phone Care Team Providers Care Lime Hide Inspector Name Role Phone Faraz Blood MD, FACC [...] Diagnoses Date Provider Providers Copied on Encounter [facility], [address] [place], [place], [id number], tel:[phone] [facility] No Information 7 Caitie Ruth. [address], [place], [id number], [place]. tel:[phone] Offic/outpt E&m Estab Low-mod [facility], [address] [place] [address], [id number], tel:[phone] [facility] Shoulder PainCervicalgia 3200 7 No Information Offic/outpt E&m Estab Low-mod [facility], [address] [place] [address], [id number], tel:[phone] [facility] Asthma W/o Status AsthmRegional Enteritis NosElevated CRP (C-reactive Prot)Cervicalgia Sep-2 2-200 6 No Information Referring Provider: Rupali Persaud, [address] [place] [address], [id number] . tel:[phone] Preven Meds E m Estab Pt;Est Patient 18-39 Prevent [facility], [address] [place] [address], [id number], tel:[phone] [facility] No Information Aug-2 1-200 5 No Information [facility], [address] [place] [address], [id number], tel:[phone] [facility] No Information Aug- 4-200 5 No Information [facility], [address] [place] [address], [id number], tel:[phone] [facility] No Information 8200 2 No Information Family History Family Member Type Diagnosis Age At Onset No Information Immunizations Vaccine Date Status Comments MMR administered Source: [facility] unization Record MCV4 administered Source: [facility] unization Record Payers Payer name Insurance type Covered green party ID Authoriza tion(s) No Information Social [...]
--- OUTSIDE RECORDS SUMMARY | 2025-03-29 23:04 | XMS_ITS | Clinical Summary ---
Author Organization [facility] Address [address] [place] [address] Care Team Providers Care Fleece Tier Name Role Phone Unavailable Primary Care Provider [...]
[2025-03-29] MEDS: SODIUM CHLORIDE 0.9% IV 1,000 ML 125 ML IV CONT (23:49)
[2025-03-29] MEDS: ONDANSETRON INJ 4 MG/2 ML VIAL IV PUSH (23:49)
[2025-03-29] MEDS: MORPHINE SULFATE (*CRX) 4 MG/ML INJ IV PUSH (23:49)
[2025-03-29 23:52] LABS: CRP 0.8 mg/dL (<1.0)
[2025-03-30] MEDS: PIPERACILLIN/TAZOBACTAM SOD 3.375 GM in SODIUM CHLORIDE 0.9% IV 50 ML 100 ML IVPB (00:30)
[2025-03-30 00:44] VITALS: BMI 31.8
[2025-03-30 00:50] VITALS: BP 160/102; PULSE 68; RESP 18; TEMP 36.1; O2SAT 99
[2025-03-30] MEDS: HYDROmorphone HCL INJ (*CRX) 2 MG/ML VIAL 1 MG IV PUSH ×6 (01:53→22:29)
[2025-03-30 02:34] VITALS: BP 138/83
--- NOTE | 2025-03-30 02:42 | ADMGEN ---
This patient, Charles Castillo, was admitted to [facility] Surg Room 300-01. Patient/family oriented to hospital policies and general routines including ID bracelet, bed and alarms, visiting hours, pain management, procedures, bathroom and other care routines, personal items, smoking policy, room service/diet, and visiting hours. Information on how to activate the Rapid Response Team has been discussed. Patient/Family are encouraged to report perceived risks to care and to ask questions if they do not understand what they are told or what they should do.
[2025-03-30 05:14] VITALS: BP 109/65; PULSE 75; RESP 18; TEMP 36.3; O2SAT 97
[2025-03-30 06:01] LABS: Hematocrit 45.4 % (42.0-52.0); Hemoglobin 14.8 g/dL (14.0-18.0); Immature Granulocyte Percent A 0.9 % (0-0.5); Lymphocytes Absolute Auto 1.01 K/mm3 (0.9-3.2); Mean Corpuscular HGB Conc 32.6 g/dl (32-36); Mean Corpuscular Hemoglobin 28.2 pg (26-34); Mean Corpuscular Volume 86.5 fl (80-100); Nucleated Red Blood Cells Absolute Auto 0.000 K/mm3 (0.0-0.012); Nucleated Red Blood Cells Perc 0.0 % (0.0-0.2); Platelet Count Result 202 k/mm3 (150-375); Red Blood Count 5.25 M/mm3 (4.6-6.20); White Blood Count 12.4 K/mm3 (4.5-10.0)
--- NOTE | 2025-03-30 07:28 | P.CONGI_ITS ---
Assessment and Plan Assessment and plan (1) Acute Crohn's disease: Qualifiers: Digestive disease complication type: with rectal bleeding Qualified Code(s): K50.911 - Crohn's disease, unspecified, with rectal bleeding Code(s): K50.90 - Crohn's disease, unspecified, without complications Status: Acute Assessment and Plan: The main clinical suspicion is an exacerbation of Crohn's disease, despite being on a stable dose of Ustekinumab. To determine the extension and severity of disease: Will perform a colonoscopy tomorrow and will start intravenous steroids. Because the patient mentions that there was suspicion for primary sclerosing cholangitis associated with inflammatory bowel disease, an MRI/MRCP will be ordered today as well. Since patient is only in town for few days, will not modify his biologic treatment. GI Consult Note Consult date/time: 03/30/25 07:28 Reason for consult: Crohn's disease-rectal bleed HPI: Charles Castillo, a 40-year-old male from [place], has been managing Crohn's disease since 2004. His treatment history includes two bowel resections in 2017, affecting his right colon and ileocecal valve. For the past two years, he has been maintained on ustekinumab, 90 mg every six weeks. His health was stable until about a week before a recent hospital admission, when he began experiencing significant passage of dark blood per rectum, 4-5 times a day. During his brief hospitalization, he received intravenous steroids and was discharged on a prednisone taper, starting at 40 mg and currently at 20 mg. A colonoscopy performed in September of this year revealed only mild changes. He also reports moderate to severe pain in his left lower quadrant. Beyond his Crohn's, he has a history of testicular cancer in 2019, for which he underwent a left orchiectomy and cisplatin chemotherapy. 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 He is currently prescribed extended-release morphine twice daily and oxycodone for rescue pain at home. Review of Systems 2 Review of Systems: All systems reviewed & are unremarkable except as noted in HPI and below PMFSH Past Medical History Medical History (Updated 03/29/25 @ 23:56 by Joanne Pool PA-C) Crohn disease Surgical History Surgical History (Updated 03/29/25 @ 23:00 by Joanne Pool PA-C) History of partial colectomy Social History Social History Smoking status: Never smoker Second hand tobacco smoke exposure: No Alcohol intake: never Substance use: never Substance use type: does not use Do You Feel Safe in your Home?: Yes Lack of Transportation: No Lack of Food: Never True Current Housing: I Have Housing Concerned About Future Housing: No Difficulty Paying Gas/Electric Bills: No Difficulty Paying for Meds: No Currently Unemployed: No Education: Master's Degree or Higher Difficulty w/ Childcare or Family Care: No Spiritual care concerns: No Meds Home Medications and Allergies Home Medications ?Medication ?Instructions ?Recorded ?Confirmed ?Type estradiol 2 mg tablet 4 mg PO BID 03/30/25 03/30/25 History famotidine 20 mg tablet 20 mg PO BID PRN gastric reflux 03/30/25 03/30/25 History hydroxyzine HCl 25 mg tablet 25 mg PO Q6H PRN anxiety 03/30/25 03/30/25 History morphine 15 mg tablet,extended 15 mg PO Q12H PRN pain (scale 03/30/25 03/30/25 History release score 7-10) omeprazole 40 mg capsule,delayed 40 mg PO DAILY 03/30/25 03/30/25 History release oxycodone 5 mg tablet 5 mg PO BID PRN pain 03/30/25 03/30/25 History prednisone 20 mg tablet 20 mg PO DAILY 03/30/25 03/30/25 History pregabalin 150 mg capsule 150 mg PO TID 03/30/25 03/30/25 History progesterone 100 mg PO DAILY 03/30/25 03/30/25 History spironolactone 50 mg tablet 100 mg PO DAILY 03/30/25 03/30/25 History tizanidine 4 mg tablet 4 mg PO Q8H 03/30/25 03/30/25 History trazodone 50 mg tablet 50 mg PO HS PRN sleep 03/30/25 03/30/25 History Allergies Allergy/AdvReac Type Severity Reaction Status Date / Time dicyclomine (From Bentyl) Allergy Severe Agitated Verified 03/30/25 03:06 aspirin Allergy Unknown Verified 07/13/23 20:49 chloropyramine AdvReac Unknown Verified 07/13/23 20:49 chlorpheniramine AdvReac Unknown Verified 07/13/23 20:49 ciprofloxacin (From Cipro) AdvReac Unknown Verified 07/13/23 20:49 decamethonium AdvReac Unknown Verified 07/13/23 20:49 haloperidol (From Haldol) AdvReac Unknown Verified 07/13/23 20:49 ketamine AdvReac Unknown Verified 07/13/23 20:49 ketorolac (From Toradol) AdvReac Unknown Verified 07/13/23 20:49 metoclopramide (From Reglan) AdvReac Unknown Verified 07/13/23 20:49 metronidazole (From Flagyl) AdvReac Unknown Verified 07/13/23 20:49 promethazine AdvReac Unknown Verified 07/13/23 20:49 quetiapine AdvReac Unknown Verified 07/13/23 20:49 Vital Signs Vital Signs - 24 hr 03/29/25 17:08 03/29/25 18:54 03/29/25 22:44 Temperature 97.9 F 97.4 F L Pulse Rate 84 83 71 Respiratory Rate 16 17 14 Blood Pressure 176/98 H 154/106 H 159/100 H Pulse Oximetry 100 98 100 Oxygen Delivery Room Air 03/29/25 23:01 03/30/25 00:50 03/30/25 02:34 Temperature 97.0 F L Pulse Rate 88 68 Respiratory Rate 18 18 Blood Pressure 156/133 H 160/102 H 138/83 Pulse Oximetry 98 99 Oxygen Delivery 03/30/25 05:14 Temperature 97.4 F L Pulse Rate 75 Respiratory Rate 18 Blood Pressure 109/65 Pulse Oximetry 97 Oxygen Delivery Exam 2 Const: General: cooperative and healthy appearing Resp: Effort & Inspection: normal respiratory effort and able to speak in complete sentences Auscultation: clear to auscultation bilaterally Cardio: Rate: regular rate Rhythm: regular rhythm GI: Inspection: normal to inspection GI Palp: No No hepatosplenomegaly present Auscultation: normal bowel sounds Rectal Exam: deferred Skin: General skin exam: normal color Psych: Appearance: grossly normal Mental Status: mental status grossly normal Results Labs 03/30/25 05:06 03/29/25 19:05 Labs: Short CBC 03/29/25 03/30/25 Range/Units 19:05 05:06 WBC 11.3 H 12.4 H (4.5-10.0) K/mm3 Hgb 16.1 14.8 (14.0-18.0) g/dL Hct 48.4 45.4 (42.0-52.0) % Plt Count 206 202 (150-375) k/mm3 BMP 03/29/25 19:05 Sodium 140 Potassium 3.8 Chloride 109 H Carbon Dioxide 22 BUN 20 Creatinine 0.99 Glucose 92 Calcium 9.1 Liver Function 03/29/25 Range/Units 19:05 Total Bilirubin 1.3 (0.2-1.3) mg/dL AST 35 (17-59) U/L ALT 47 (6-50) U/L Alkaline Phosphatase 119 (38-126) U/L Albumin 4.4 (3.5-5.1) g/dL
--- NOTE | 2025-03-30 08:02 | PM.IMHP ---
H&P: HPI History of Present Illness Date/Time: 03/30/25 08:02 Chief Complaint: rectal bleeding and abdominal pain Narrative: 40 year old biological male transitioning to female (on estradiol, progesterone and spironolactone) with past medical history of crohns disease on a biologic s/p partial colectomy and testicular cancer s/p left orchiectomy and cisplatin chemotherapy presents to the hospital for rectal bleeding and abdominal pain. Patient is in town from [place]. Patient was recently hospitalized 2 weeks ago for similar symptoms including dark blood per rectum approximately 4-5 times per day for which he received intravenous steroids and was discharged on a prednisone taper, which he did not complete. He states that the rectal bleeding and abdominal pain resolved following the hospitalization but recurred yesterday. He is now endorsing left lower abdominal pain that he describes as a constant cramping with periodic sharp stabbing pain. He notes dark/burgundy colored stools and intermittent blood clots as well. He states that this feels similar to his prior crohns flares. Patient has been maintained on Stelara 90 mg every six weeks, last dose about 2 weeks ago. He also notes that he has been having intermittent RUQ pain and was being worked up for primary sclerosing cholangitis associated with inflammatory bowel disease. He was scheduled to have an MRCP this week for further evaluation. He currently denies any RUQ pain. He denies chest pain, shortness of breath, palpitations, nausea/vomiting, fevers/chills. ER workup: CBC with WBC 11.3, H/H 16.1/45.4, and PLT 202. CMP with Na 140, K 3.8, Cl 109, Co2 22, BUN/Cr 20/0.99. Ca 9.1. Mag 1.9. LFTs WNL. Lipase WNL. Abdomen/pelvis CT showed very mild diverticular and pericolonic inflammatory change at the distal sigmoid in the deep pelvis, which may represent early/mild diverticulitis. Otherwise, no acute abdominopelvic process detected Review of Systems Review of Systems: All systems reviewed & are unremarkable except as noted in HPI and below PMFSH Past Medical History Medical History (Updated 03/30/25 @ 14:46 by Eula Cartwright PA-C) Neuropathy associated with cancer Testicular cancer Crohn disease Surgical History Surgical History (Updated 03/30/25 @ 14:46 by Eula Cartwright PA-C) Hx of cholecystectomy History of orchiectomy History of partial colectomy Social History Social History (Updated 03/30/25 @ 14:55 by Eula Cartwright PA-C) Social History: From [place]. Lives alone. Has cats. Smoking status: Never smoker Second hand tobacco smoke exposure: No Alcohol intake: current Alcohol use details: rarely drinks Substance use: never Substance use type: does not use Do You Feel Safe in your Home?: Yes Lack of Transportation: No Lack of Food: Never True Current Housing: I Have Housing Concerned About Future Housing: No Difficulty Paying Gas/Electric Bills: No Difficulty Paying for Meds: No Currently Unemployed: No Education: Master's Degree or Higher Difficulty w/ Childcare or Family Care: No Spiritual care concerns: No Meds Home Medications and Allergies Home Medications ?Medication ?Instructions ?Recorded ?Confirmed ?Type estradiol 2 mg tablet 4 mg PO BID 03/30/25 03/30/25 History famotidine 20 mg tablet 20 mg PO BID PRN gastric reflux 03/30/25 03/30/25 History hydroxyzine HCl 25 mg tablet 25 mg PO Q6H PRN anxiety 03/30/25 03/30/25 History morphine 15 mg tablet,extended 15 mg PO Q12H PRN pain (scale 03/30/25 03/30/25 History release score 7-10) omeprazole 40 mg capsule,delayed 40 mg PO DAILY 03/30/25 03/30/25 History release oxycodone 5 mg tablet 5 mg PO BID PRN pain 03/30/25 03/30/25 History prednisone 20 mg tablet 20 mg PO DAILY 03/30/25 03/30/25 History pregabalin 150 mg capsule 150 mg PO TID 03/30/25 03/30/25 History progesterone 100 mg PO DAILY 03/30/25 03/30/25 History spironolactone 50 mg tablet 100 mg PO DAILY 03/30/25 03/30/25 History tizanidine 4 mg tablet 4 mg PO Q8H 03/30/25 03/30/25 History trazodone 50 mg tablet 50 mg PO HS PRN sleep 03/30/25 03/30/25 History Allergies Allergy/AdvReac Type Severity Reaction Status Date / Time dicyclomine (From Bentyl) Allergy Severe Agitated Verified 03/30/25 03:06 aspirin Allergy Unknown Verified 07/13/23 20:49 chloropyramine AdvReac Unknown Verified 07/13/23 20:49 chlorpheniramine AdvReac Unknown Verified 07/13/23 20:49 ciprofloxacin (From Cipro) AdvReac Unknown Verified 07/13/23 20:49 decamethonium AdvReac Unknown Verified 07/13/23 20:49 haloperidol (From Haldol) AdvReac Unknown Verified 07/13/23 20:49 ketamine AdvReac Unknown Verified 07/13/23 20:49 ketorolac (From Toradol) AdvReac Unknown Verified 07/13/23 20:49 metoclopramide (From Reglan) AdvReac Unknown Verified 07/13/23 20:49 metronidazole (From Flagyl) AdvReac Unknown Verified 07/13/23 20:49 promethazine AdvReac Unknown Verified 07/13/23 20:49 quetiapine AdvReac Unknown Verified 07/13/23 20:49 Vital Signs Vital Signs - 24 hr 03/29/25 17:08 03/29/25 18:54 03/29/25 22:44 Temperature 97.9 F 97.4 F L Pulse Rate 84 83 71 Respiratory Rate 16 17 14 Blood Pressure 176/98 H 154/106 H 159/100 H Pulse Oximetry 100 98 100 Oxygen Delivery Room Air 03/29/25 23:01 03/30/25 00:50 03/30/25 02:34 Temperature 97.0 F L Pulse Rate 88 68 Respiratory Rate 18 18 Blood Pressure 156/133 H 160/102 H 138/83 Pulse Oximetry 98 99 Oxygen Delivery 03/30/25 05:14 Temperature 97.4 F L Pulse Rate 75 Respiratory Rate 18 Blood Pressure 109/65 Pulse Oximetry 97 Oxygen Delivery Exam Narrative: AF HR 71 RR 18 SpO2 96 BP 135/89 General: no acute respiratory distress who is nontoxic appearing, lying semi recumbent in bed. HEENT: Normocephalic. Atraumatic. Extraocular movement intact. Sclera clear and anicteric. No facial asymmetry. Neck: Neck was supple. No dominant adenopathy, thyromegaly or masses. Chest: Lungs are clear to auscultation bilaterally. No wheezes or crackles. CV: Heart was regular rate and rhythm. Abd: Abdomen was soft. Tender to palpation to LLQ without gaurding. Nondistended. Positive bowel sounds. Ext: No clubbing, cyanosis, or edema. DP pulses bilaterally. Neuro: Patient is alert and oriented x3. Strength is symmetrical in both upper and lower extremities. Speech is clear. Psych: Normal mood and affect. Patient is pleasant and cooperative. Skin: Warm and dry. No rashes noted. H&P: Results Labs Labs: Short CBC 03/29/25 03/30/25 Range/Units 19:05 05:06 WBC 11.3 H 12.4 H (4.5-10.0) K/mm3 Hgb 16.1 14.8 (14.0-18.0) g/dL Hct 48.4 45.4 (42.0-52.0) % Plt Count 206 202 (150-375) k/mm3 BMP 03/29/25 19:05 Sodium 140 Potassium 3.8 Chloride 109 H Carbon Dioxide 22 BUN 20 Creatinine 0.99 Glucose 92 Calcium 9.1 Liver Function 03/29/25 Range/Units 19:05 Total Bilirubin 1.3 (0.2-1.3) mg/dL AST 35 (17-59) U/L ALT 47 (6-50) U/L Alkaline Phosphatase 119 (38-126) U/L Albumin 4.4 (3.5-5.1) g/dL Assessment and Plan Assessment and plan (1) Acute Crohn's disease: Qualifiers: Digestive disease complication type: with rectal bleeding Qualified Code(s): K50.911 - Crohn's disease, unspecified, with rectal bleeding Code(s): K50.90 - Crohn's disease, unspecified, without complications Status: Acute Assessment and Plan: History of Crohns s/p partial colectomy Maintained on Sterlara, last dose 2 weeks ago - Solu-medrol 60 mg IV daily, started on 03/29 - Antiemetics - Analgesics - Blood cultures pending - CT Abdomen/pelvis: Very mild diverticular and pericolonic inflammatory change at the distal sigmoid in the deep pelvis, which may represent early/mild diverticulitis. Otherwise, no acute abdominopelvic process detected - Monitor vital signs, I&Os, track stool output, watch for bloody stools, neuro status and patient is a fall risk - Monitor serum electrolytes and CBC - Gentle IV fluid resuscitation - GI consulted plan for colonoscopy tomorrow for crohns workup ordering an MRCP for possible cholangitis however CT unremarkable and LFTs WNL (2) GI bleeding: Qualifiers: GI bleed type/associated pathology: anorectal hemorrhage Qualified Code(s): K62.5 - Hemorrhage of anus and rectum Code(s): K92.2 - Gastrointestinal hemorrhage, unspecified Status: Acute Assessment and Plan: Endorsing dark/burgundy colored stools and intermittent blood clots as well. He states that this feels similar to his prior crohns flares. - H/H stable, continue to monitor - GI consulted plan for colonoscopy tomorrow for crohns workup Quality VTE Prophylaxis VTE prophylaxis: mechanical ordered Hospitalist MIPS Advance Care Plan I have confirmed that the patient's Advanced Care Plan is present, code status is documented, or surrogate decision maker is listed in patient medical record.: Yes Medication Reconciliation I have utilized all available resources to obtain, update and review the patients current medications (includes all prescriptions, OTC, herbals, cannabis, and nutritional supplements).: Yes
[2025-03-30 14:00] VITALS: BP 135/89; PULSE 71; RESP 18; TEMP 35.7; O2SAT 96
[2025-03-30] MEDS: SIMETHICONE 80 MG TAB.CHEW 160 MG PO ×2 (15:11→21:53)
[2025-03-30] MEDS: PREGABALIN (*CRX) 75 MG CAPSULE 150 MG PO (16:36)
[2025-03-30] MEDS: SODIUM CHLORIDE 0.9% IV 1,000 ML 125 ML IV CONT (16:37)
[2025-03-30] MEDS: MORPHINE SULFATE (*CRX) 15 MG TABCR PO (18:19)
[2025-03-30 20:00] VITALS: PULSE 77; RESP 18; O2SAT 98
[2025-03-30 21:53] VITALS: BP 148/91; PULSE 77; RESP 18; TEMP 36.4; O2SAT 98
[2025-03-30] MEDS: PANTOPRAZOLE 40 MG TABLET PO (21:53)
[2025-03-31] VITALS (7 sets, daily range): BP systolic 130–153; BP diastolic 70–89; PULSE 56–68; RESP 12–20; TEMP 35.8–36.3; O2SAT 96–100
[2025-03-31] MEDS: SODIUM CHLORIDE 0.9% IV 1,000 ML 125 ML IV CONT ×3 (00:37→20:16)
[2025-03-31] MEDS: HYDROmorphone HCL INJ (*CRX) 2 MG/ML VIAL 1 MG IV PUSH ×6 (02:20→22:21)
[2025-03-31 06:11] LABS: Hematocrit 39.5 % (42.0-52.0); Hemoglobin 13.1 g/dL (14.0-18.0); Mean Corpuscular HGB Conc 33.2 g/dl (32-36); Mean Corpuscular Hemoglobin 28.4 pg (26-34); Mean Corpuscular Volume 85.7 fl (80-100); Platelet Count Result 201 k/mm3 (150-375); Red Blood Count 4.61 M/mm3 (4.6-6.20); White Blood Count 12.7 K/mm3 (4.5-10.0)
[2025-03-31] MEDS: MORPHINE SULFATE (*CRX) 15 MG TABCR PO (06:22)
[2025-03-31 06:38] LABS: Alanine Aminotransferase 33 U/L (6-50); Albumin Level 3.6 g/dL (3.5-5.1); Alkaline Phosphatase 100 U/L (38-126); Anion Gap 6 mmol/L (4-12); Aspartate Amino Transferase 21 U/L (17-59); Bilirubin,Total 1.1 mg/dL (0.2-1.3); Blood Urea Nitrogen 20 mg/dL (9-20); Calcium 8.8 mg/dL (8.4-10.2); Carbon Dioxide 20 mmol/L (22-30); Chloride 107 mmol/L (98-107); Estimated CRCL calculation 132 ml/min; Estimated Glomerular Filt Rate > 60; Glucose 131 mg/dL (65-110); Potassium 4.2 mmol/L (3.4-5.0); Sodium 133 mmol/L (137-145); Total Protein 5.9 g/dL (6.3-8.2)
--- NOTE | 2025-03-31 08:44 | PM.IMPN ---
Progress Note: A&P Assessment and Plan (1) Acute Crohn's disease: Qualifiers: Digestive disease complication type: with rectal bleeding Qualified Code(s): K50.911 - Crohn's disease, unspecified, with rectal bleeding Code(s): K50.90 - Crohn's disease, unspecified, without complications Status: Acute Assessment and Plan: History of Crohns s/p partial colectomy Maintained on Sterlara, last dose 2 weeks ago - Solu-medrol 60 mg IV daily, started on 03/29. Discontinued per GI on 03/31. Will have patient complete the prednisone taper as previously prescribed. - Antiemetics - Analgesics: Continues home pain regimen of oxycodone 5 mg BID PRN and morphine 15 mg BID PRN. Dilaudid 1mg IV PRN. - Blood cultures pending - CT Abdomen/pelvis: Very mild diverticular and pericolonic inflammatory change at the distal sigmoid in the deep pelvis, which may represent early/mild diverticulitis. Otherwise, no acute abdominopelvic process detected - Monitor vital signs, I&Os, track stool output, watch for bloody stools, neuro status and patient is a fall risk - Monitor serum electrolytes and CBC - Gentle IV fluid resuscitation - GI consulted Colonoscopy showed few medium diverticula in the sigmoid colon and a few small size uncomplicated internal hemorrhoids were seen in the rectum. Recommend DC steroids and follow up with primary GI in outpatient setting. ordering an MRCP for possible cholangitis however CT unremarkable and LFTs WNL MRCP showed s/p cholecystectomy and right hemicolectomy with ileocolic anastomosis. Unremarkable MRI/MRCP. (2) GI bleeding: Qualifiers: GI bleed type/associated pathology: anorectal hemorrhage Qualified Code(s): K62.5 - Hemorrhage of anus and rectum Code(s): K92.2 - Gastrointestinal hemorrhage, unspecified Status: Acute Assessment and Plan: Endorsing dark/burgundy colored stools and intermittent blood clots as well. He states that this feels similar to his prior crohns flares. - H/H stable, continue to monitor - GI consulted Colonoscopy showed few medium diverticula in the sigmoid colon and a few small size uncomplicated internal hemorrhoids were seen in the rectum No longer endorsing dark stools or bleeding per rectum. Time Spent With Patient Time with patient: 25 - 35 minutes Subjective Date/time seen: 03/31/25 08:44 Interval history: 40 year old biological male transitioning to female (on estradiol, progesterone and spironolactone) with past medical history of crohns disease on a biologic s/p partial colectomy and testicular cancer s/p left orchiectomy and cisplatin chemotherapy presents to the hospital for rectal bleeding and abdominal pain. Patient is pleasant ambulating throughout his room prior to sitting on the side of his bed. Patient states that the abdominal pain has gotten increasingly worse since starting the bowel prep due to ongoing diarrhea. Patient is no longer endorsing burgundy stools or bleeding per rectum. Patient notes slight nausea that they relate more to the pain but denies any vomiting. Patient has no other complaints denying chest pain, palpitations, and shortness of breath. Review of Systems Review of Systems: All systems reviewed & are unremarkable except as noted in HPI and below Exam Narrative: AF HR 66 RR 19 Spo2 99 BP 137/82 General: no acute respiratory distress who is nontoxic appearing, sitting up on the side of bed. HEENT: Normocephalic. Atraumatic. Extraocular movement intact. Sclera clear and anicteric. No facial asymmetry. Chest: Lungs are clear to auscultation bilaterally. No wheezes or crackles. CV: Heart was regular rate and rhythm. Abd: Abdomen was soft. Tender to palpation to LLQ without guarding. Nondistended. Positive bowel sounds. Ext: No clubbing, cyanosis, or edema. DP pulses bilaterally. Neuro: Patient is alert and oriented x3. Strength is symmetrical in both upper and lower extremities. Speech is clear. Psych: Normal mood and affect. Patient is pleasant and cooperative. Skin: Warm and dry. No rashes noted. Objective Data Vital Signs Vital Signs: Vital Signs - 24 hr 03/30/25 14:00 03/30/25 20:00 03/30/25 21:53 Temperature 96.2 F L 97.6 F Pulse Rate 71 77 77 Respiratory Rate 18 18 18 Blood Pressure 135/89 148/91 H Pulse Oximetry 96 98 98 Oxygen Delivery Room Air 03/31/25 06:00 Temperature 97 F L Pulse Rate 63 Respiratory Rate 16 Blood Pressure 132/70 Pulse Oximetry 96 Oxygen Delivery Intake/Output Intake/Output: Intake & Output 03/28/25 03/29/25 03/30/25 03/31/25 23:59 23:59 23:59 23:59 Intake Total 1740 3330 Balance 1740 3330 Meds/Results Medications: Active Medications Generic Name Dose Route Start Last Admin Trade Name Carlos Enrique PRN Reason Stop Dose Admin Estradiol 4 mg 03/30/25 17:00 03/30/25 16:36 Estradiol 1 Mg Tablet PO 4 mg BID ARTURO Administration Hydromorphone HCl 1 mg 03/29/25 23:57 03/31/25 06:23 Hydromorphone Hcl Inj (*Crx) 2 Mg/Ml Vial IV PUSH 1 mg Q4H PRN Administration Pain Rated 7-10 Sodium Chloride 1,000 mls @ 125 mls/hr 03/29/25 23:35 03/31/25 08:40 Normal Saline Iv IV CONT 125 mls/hr .Q8H ARTURO Administration Methylprednisolone Sodium Succinate 60 mg 03/30/25 09:00 03/30/25 09:55 Methylprednisolone Sod Succ 125 Mg Vial IV PUSH 60 mg DAILY ARTURO Administration Morphine Sulfate 15 mg 03/30/25 14:57 03/31/25 06:22 Morphine Sulfate (*Crx) 15 Mg Tabcr PO 15 mg Q12H PRN Administration pain (scale score 7-10) Ondansetron HCl 4 mg 03/29/25 23:31 Ondansetron Inj 4 Mg/2 Ml Vial IV PUSH Q4H PRN Nausea Pantoprazole Sodium 40 mg 03/30/25 21:00 03/30/25 21:53 Pantoprazole 40 Mg Tablet PO 40 mg HS ARTURO Administration Pregabalin 150 mg 03/30/25 17:00 03/30/25 16:36 Pregabalin (*Crx) 75 Mg Capsule PO 150 mg TID ARTURO Administration Spironolactone 100 mg 03/31/25 09:00 Spironolactone 50 Mg Tablet PO DAILY ARTURO Trazodone HCl 50 mg 03/30/25 14:57 Trazodone Hcl 50 Mg Tablet PO HS PRN sleep Radiology Results: ITS Impressions Abdomen/Pelvis CT 03/29/25 20:20 IMPRESSION: Very mild diverticular and pericolonic inflammatory change at the distal sigmoid in the deep pelvis, which may represent early/mild diverticulitis. Otherwise, no acute abdominopelvic process detected MRCP 03/30/25 19:38 IMPRESSION: 1. Status post cholecystectomy and right hemicolectomy with ileocolic anastomosis. Otherwise unremarkable MRI/MRCP. Labs Labs: Laboratory Results - last 24 hr 03/31/25 05:31 WBC 12.7 H RBC 4.61 Hgb 13.1 L Hct 39.5 L MCV 85.7 MCH 28.4 MCHC 33.2 RDW 15.1 H Plt Count 201 MPV 10.7 H Sodium 133 L Potassium 4.2 Chloride 107 Carbon Dioxide 20 L Anion Gap 6 BUN 20 Creatinine 0.81 Estim Creat Clear Calc 132 Estimated GFR > 60 Glucose 131 H Calcium 8.8 Total Bilirubin 1.1 AST 21 ALT 33 Alkaline Phosphatase 100 Total Protein 5.9 L Albumin 3.6 Quality VTE Prophylaxis VTE prophylaxis: mechanical ordered
[2025-03-31] MEDS: ONDANSETRON INJ 4 MG/2 ML VIAL IV PUSH (10:39)
[2025-03-31] MEDS: LACTATED RINGERS 1,000 ML 150 ML IV CONT (11:04)
--- NOTE | 2025-03-31 12:03 | WPDANESEPPF ---
Anes - Initial Pre Proc Eval Procedure: Operation Date: 03/31/25 15:00 Proposed Procedures p Diagnostic Colonoscopy - Clinton Christopher MD Date/Time: 03/31/25 12:03 Surgeon: Shruti Erickson DO Pre Op Diagnosis: Crohn's flare, GI bleeding Patient Data Age: 40 Gender: M Height: 1.83 m Weight: 106.3 kg Last Vital Signs Temp 97.3 F L 03/31/25 11:01 Pulse 58 L 03/31/25 11:01 Resp 18 03/31/25 11:01 BP 144/89 H 03/31/25 11:01 Pulse Ox 98 03/31/25 11:01 O2 Del Method Room Air 03/31/25 11:01 Allergies Allergy/AdvReac Type Severity Reaction Status Date / Time dicyclomine (From Bentyl) Allergy Severe Agitated Verified 03/30/25 03:06 aspirin Allergy Unknown Verified 07/13/23 20:49 chloropyramine AdvReac Unknown Verified 07/13/23 20:49 chlorpheniramine AdvReac Unknown Verified 07/13/23 20:49 ciprofloxacin (From Cipro) AdvReac Unknown Verified 07/13/23 20:49 decamethonium AdvReac Unknown Verified 07/13/23 20:49 haloperidol (From Haldol) AdvReac Unknown Verified 07/13/23 20:49 ketamine AdvReac Unknown Verified 07/13/23 20:49 ketorolac (From Toradol) AdvReac Unknown Verified 07/13/23 20:49 metoclopramide (From Reglan) AdvReac Unknown Verified 07/13/23 20:49 metronidazole (From Flagyl) AdvReac Unknown Verified 07/13/23 20:49 promethazine AdvReac Unknown Verified 07/13/23 20:49 quetiapine AdvReac Unknown Verified 07/13/23 20:49 Home Medications ?Medication ?Instructions ?Recorded ?Confirmed ?Type estradiol 2 mg tablet 4 mg PO BID 03/30/25 03/30/25 History famotidine 20 mg tablet 20 mg PO BID PRN gastric reflux 03/30/25 03/30/25 History hydroxyzine HCl 25 mg tablet 25 mg PO Q6H PRN anxiety 03/30/25 03/30/25 History morphine 15 mg tablet,extended 15 mg PO Q12H PRN pain (scale 03/30/25 03/30/25 History release score 7-10) omeprazole 40 mg capsule,delayed 40 mg PO DAILY 03/30/25 03/30/25 History release oxycodone 5 mg tablet 5 mg PO BID PRN pain 03/30/25 03/30/25 History prednisone 20 mg tablet 20 mg PO DAILY 03/30/25 03/30/25 History pregabalin 150 mg capsule 150 mg PO TID 03/30/25 03/30/25 History progesterone 100 mg PO DAILY 03/30/25 03/30/25 History spironolactone 50 mg tablet 100 mg PO DAILY 03/30/25 03/30/25 History tizanidine 4 mg tablet 4 mg PO Q8H 03/30/25 03/30/25 History trazodone 50 mg tablet 50 mg PO HS PRN sleep 03/30/25 03/30/25 History Laboratory Tests 03/31/25 05:31 WBC 12.7 H K/mm3 (4.5-10.0) RBC 4.61 M/mm3 (4.6-6.20) Hgb 13.1 L g/dL (14.0-18.0) Hct 39.5 L % (42.0-52.0) MCV 85.7 fl (80-100) MCH 28.4 pg (26-34) MCHC 33.2 g/dl (32-36) RDW 15.1 H % (11.5-14.5) Plt Count 201 k/mm3 (150-375) MPV 10.7 H fl (7.4-10.4) Sodium 133 L mmol/L (137-145) Potassium 4.2 mmol/L (3.4-5.0) Chloride 107 mmol/L (98-107) Carbon Dioxide 20 L mmol/L (22-30) Anion Gap 6 mmol/L (4-12) BUN 20 mg/dL (9-20) Creatinine 0.81 mg/dL (0.7-1.3) Estim Creat Clear Calc 132 ml/min Estimated GFR > 60 (59 - ) Glucose 131 H mg/dL (65-110) Calcium 8.8 mg/dL (8.4-10.2) Total Bilirubin 1.1 mg/dL (0.2-1.3) AST 21 U/L (17-59) ALT 33 U/L (6-50) Alkaline Phosphatase 100 U/L (38-126) Total Protein 5.9 L g/dL (6.3-8.2) Albumin 3.6 g/dL (3.5-5.1) Patient hx anesthesia problems: other (High anxiety w procedural sedation. Pt states he has woken up before during colonoscopy. ) Family hx anesthesia problems: none Results Review: All pre-operative results and documents have been reviewed as part of the pre-operative evaluation. [facility] Past Medical History Medical History Neuropathy associated with cancer Testicular cancer Crohn disease Surgical History Surgical History Hx of cholecystectomy History of orchiectomy History of partial colectomy Social History Social History Social History: From [place]. Lives alone. Has cats. Smoking status: Never smoker Second hand tobacco smoke exposure: No Alcohol intake: current Alcohol use details: rarely drinks Substance use: never Substance use type: does not use Do You Feel Safe in your Home?: Yes Lack of Transportation: No Lack of Food: Never True Current Housing: I Have Housing Concerned About Future Housing: No Difficulty Paying Gas/Electric Bills: No Difficulty Paying for Meds: No Currently Unemployed: No Education: Master's Degree or Higher Difficulty w/ Childcare or Family Care: No Gender identity (if verbalized by the patient): Transgender Female Spiritual care concerns: No Anes - Eval Final PreProcedure Day of Procedure 03/31/25 12:03 Patient weight: obese Lungs: normal air movement Airway: Mallampati scale class II Neurological: alert and oriented Last oral intake: >/= 8 hours ASA classification: II Emergent: no Anesthetic plan: proceed Anesthesia type and monitoring: general GIVS and standard monitoring Results Review: All pre-operative results and documents have been reviewed as part of the pre-operative evaluation. Crohns disease, now inpt for colonscopy. High anxiety w procedural sedation. Informed Consent: The patient's anesthetic plan and its attendant risks and benefits were discussed with the patient/family/POA. Questions were solicited and answers provided to the satisfaction of the patient/family/POA.
[2025-03-31] MEDS: MIDAZOLAM HCL (*CRX) 2 MG/2 ML VIAL IV PUSH (12:08)
--- NOTE | 2025-03-31 12:37 | S_PTH ---
PATIENT: Charles Castillo LOC: [id number] U#:[id number] AGE/SX: 40/M ROOM: 300 RE03/30/[address]: Lino Gimenez MD : [id number] BED: 01 DIS: 04/02/2025 SPEC #: [id number] RECD: 03/31/25 14:18 STATUS: LUDWIG REQ #: [id number] CHUCHO: 03/31/25 12:[address]: Clinton Christopher DEPT: [facility] RECD BY: Nicole Gold ENTERED: 03/31/25 14:19 SP TYPE: Surgical OTHR DR: DO Eula Arriaza PA-C UNKNOWN,DOCTOR Tissues: A - Colon Biopsy B - Colon Biopsy C - Colon Biopsy Procedures: Hematoxylin and Eosin Stain Gross and Microscopic Level 4
--- NOTE | 2025-03-31 13:48 | P.PNGI_ITS ---
Progress Note: A&P Assessment and Plan (1) GI bleeding: Qualifiers: GI bleed type/associated pathology: anorectal hemorrhage Qualified Code(s): K62.5 - Hemorrhage of anus and rectum Code(s): K92.2 - Gastrointestinal hemorrhage, unspecified Status: Acute Assessment and Plan: see colonoscopy report. No evidence of active Crohn's disease. Patient can be discharged home on his regular medications. No need to prescribe steroids since there is no evidence of disease activity. He should take his records from MRCP and colonoscopy to his regular doctors in [place]. Subjective Date/time seen: 03/31/25 13:48 Objective Data Vital Signs Vital Signs: Vital Signs - 24 hr 03/30/25 14:00 03/30/25 20:00 03/30/25 21:53 Temperature 96.2 F L 97.6 F Pulse Rate 71 77 77 Respiratory Rate 18 18 18 Blood Pressure 135/89 148/91 H Pulse Oximetry 96 98 98 Oxygen Delivery Room Air 03/31/25 06:00 03/31/25 08:00 03/31/25 11:01 Temperature 97 F L 97.3 F L Pulse Rate 63 58 L Respiratory Rate 16 18 Blood Pressure 132/70 144/89 H Pulse Oximetry 96 98 Oxygen Delivery Room Air Room Air 03/31/25 12:48 03/31/25 12:58 03/31/25 13:08 Temperature Pulse Rate 68 66 65 Respiratory Rate 12 19 13 Blood Pressure 130/88 135/75 137/82 Pulse Oximetry 98 99 100 Oxygen Delivery Room Air Room Air Room Air Intake/Output Intake/Output: Intake & Output 03/28/25 03/29/25 03/30/25 03/31/25 23:59 23:59 23:59 23:59 Intake Total 1740 3330 Balance 1740 3330 Meds/Results Medications: Active Medications Generic Name Dose Route Start Last Admin Trade Name Freq PRN Reason Stop Dose Admin Estradiol 4 mg 03/30/25 17:00 03/31/25 10:16 Estradiol 1 Mg Tablet PO Not Given BID ARTURO Hydromorphone HCl 1 mg 03/29/25 23:57 03/31/25 10:31 Hydromorphone Hcl Inj (*Crx) 2 Mg/Ml Vial IV PUSH 1 mg Q4H PRN Administration Pain Rated 7-10 Sodium Chloride 1,000 mls @ 125 mls/hr 03/29/25 23:35 03/31/25 08:40 Normal Saline Iv IV CONT 125 mls/hr .Q8H ARTURO Administration Lactated Ringer's 1,000 mls @ 150 mls/hr 03/31/25 11:00 03/31/25 12:48 Lr - Lactated Ringers Iv IV CONT 150 mls/hr .Q6H40M ARTURO Infusion Ondansetron HCl 4 mg 03/29/25 23:31 03/31/25 10:39 Ondansetron Inj 4 Mg/2 Ml Vial IV PUSH 4 mg Q4H PRN Administration Nausea Oxycodone HCl 5 mg 03/31/25 13:16 Oxycodone Hcl (*Crx) 5 Mg Tab Ir PO BID PRN Pain Rated 7-10 Pantoprazole Sodium 40 mg 03/30/25 21:00 03/30/25 21:53 Pantoprazole 40 Mg Tablet PO 40 mg HS ARTURO Administration Pregabalin 150 mg 03/30/25 17:00 03/31/25 10:16 Pregabalin (*Crx) 75 Mg Capsule PO Not Given TID ARTURO Spironolactone 100 mg 03/31/25 09:00 Spironolactone 50 Mg Tablet PO DAILY ARTURO Trazodone HCl 50 mg 03/30/25 14:57 Trazodone Hcl 50 Mg Tablet PO HS PRN sleep Radiology Results: ITS Impressions Abdomen/Pelvis CT 03/29/25 20:20 IMPRESSION: Very mild diverticular and pericolonic inflammatory change at the distal sigmoid in the deep pelvis, which may represent early/mild diverticulitis. Otherwise, no acute abdominopelvic process detected MRCP 03/30/25 19:38 IMPRESSION: 1. Status post cholecystectomy and right hemicolectomy with ileocolic anasto mosis. Otherwise unremarkable MRI/MRCP. Labs Labs: Laboratory Results - last 24 hr 03/31/25 05:31 WBC 12.7 H RBC 4.61 Hgb 13.1 L Hct 39.5 L MCV 85.7 MCH 28.4 MCHC 33.2 RDW 15.1 H Plt Count 201 MPV 10.7 H Sodium 133 L Potassium 4.2 Chloride 107 Carbon Dioxide 20 L Anion Gap 6 BUN 20 Creatinine 0.81 Estim Creat Clear Calc 132 Estimated GFR > 60 Glucose 131 H Calcium 8.8 Total Bilirubin 1.1 AST 21 ALT 33 Alkaline Phosphatase 100 Total Protein 5.9 L Albumin 3.6
[2025-03-31] MEDS: PREGABALIN (*CRX) 75 MG CAPSULE 150 MG PO ×2 (14:54→17:07)
[2025-03-31] MEDS: SPIRONOLACTONE 50 MG TABLET 100 MG PO (14:54)
[2025-03-31] MEDS: PANTOPRAZOLE 40 MG TABLET PO (20:16)
[2025-04-01] MEDS: HYDROmorphone HCL INJ (*CRX) 2 MG/ML VIAL 1 MG IV PUSH ×2 (02:02→06:12)
[2025-04-01] MEDS: SODIUM CHLORIDE 0.9% IV 1,000 ML 125 ML IV CONT ×2 (04:29→13:51)
[2025-04-01 06:06] VITALS: BP 118/78; PULSE 53; RESP 18; TEMP 36.4; O2SAT 98
[2025-04-01 06:43] LABS: Hematocrit 38.8 % (42.0-52.0); Hemoglobin 12.9 g/dL (14.0-18.0); Mean Corpuscular HGB Conc 33.2 g/dl (32-36); Mean Corpuscular Hemoglobin 28.5 pg (26-34); Mean Corpuscular Volume 85.7 fl (80-100); Platelet Count Result 162 k/mm3 (150-375); Red Blood Count 4.53 M/mm3 (4.6-6.20); White Blood Count 9.1 K/mm3 (4.5-10.0)
[2025-04-01 07:11] LABS: Alanine Aminotransferase 32 U/L (6-50); Albumin Level 3.4 g/dL (3.5-5.1); Alkaline Phosphatase 94 U/L (38-126); Anion Gap 5 mmol/L (4-12); Aspartate Amino Transferase 21 U/L (17-59); Bilirubin,Total 1.4 mg/dL (0.2-1.3); Blood Urea Nitrogen 16 mg/dL (9-20); Calcium 8.6 mg/dL (8.4-10.2); Carbon Dioxide 24 mmol/L (22-30); Chloride 109 mmol/L (98-107); Estimated CRCL calculation 112 ml/min; Estimated Glomerular Filt Rate > 60; Glucose 114 mg/dL (65-110); Potassium 4.1 mmol/L (3.4-5.0); Sodium 138 mmol/L (137-145); Total Protein 5.8 g/dL (6.3-8.2)
[2025-04-01 08:00] VITALS: O2SAT 98
[2025-04-01] MEDS: ONDANSETRON INJ 4 MG/2 ML VIAL IV PUSH (09:05)
--- NOTE | 2025-04-01 09:22 | PM.IMPN ---
Progress Note: A&P Assessment and Plan (1) Acute Crohn's disease: Qualifiers: Digestive disease complication type: with rectal bleeding Qualified Code(s): K50.911 - Crohn's disease, unspecified, with rectal bleeding Code(s): K50.90 - Crohn's disease, unspecified, without complications Status: Acute Assessment and Plan: History of Crohns s/p partial colectomy Maintained on Sterlara, last dose 2 weeks ago - Solu-medrol 60 mg IV daily, started on 03/29. Discontinued per GI on 03/31. Will have patient complete the prednisone taper as previously prescribed. - Antiemetics - Analgesics: Continues home pain regimen of oxycodone 5 mg BID PRN and morphine 15 mg BID PRN. Dilaudid 0.5mg IV PRN. - Blood cultures pending - CT Abdomen/pelvis: Very mild diverticular and pericolonic inflammatory change at the distal sigmoid in the deep pelvis, which may represent early/mild diverticulitis. Otherwise, no acute abdominopelvic process detected - Monitor vital signs, I&Os, track stool output, watch for bloody stools, neuro status and patient is a fall risk - Monitor serum electrolytes and CBC - Gentle IV fluid resuscitation - GI consulted Colonoscopy showed few medium diverticula in the sigmoid colon and a few small size uncomplicated internal hemorrhoids were seen in the rectum. Recommend DC steroids and follow up with primary GI in outpatient setting. ordering an MRCP for possible cholangitis however CT unremarkable and LFTs WNL MRCP showed s/p cholecystectomy and right hemicolectomy with ileocolic anastomosis. Unremarkable MRI/MRCP. Continues to endorse left lower quadrant pain and is having diarrhea. He has not tried the advance diet as he states he is concerned about further abdominal discomfort. Tolerated a clear liquid diet this morning for breakfast. Continue to encourage patient to use the oral pain regimen for his pain as he will not be able to discharge on the IV pain medication. He states understanding. (2) GI bleeding: Qualifiers: GI bleed type/associated pathology: anorectal hemorrhage Qualified Code(s): K62.5 - Hemorrhage of anus and rectum Code(s): K92.2 - Gastrointestinal hemorrhage, unspecified Status: Acute Assessment and Plan: Endorsing dark/burgundy colored stools and intermittent blood clots as well. He states that this feels similar to his prior crohns flares. - H/H stable, continue to monitor - GI consulted Colonoscopy showed few medium diverticula in the sigmoid colon and a few small size uncomplicated internal hemorrhoids were seen in the rectum No longer endorsing dark stools or bleeding per rectum. Resolved. Time Spent With Patient Time with patient: 25 - 35 minutes Subjective Date/time seen: 04/01/25 09:22 Interval history: 40 year old biological male transitioning to female (on estradiol, progesterone and spironolactone) with past medical history of crohns disease on a biologic s/p partial colectomy and testicular cancer s/p left orchiectomy and cisplatin chemotherapy presents to the hospital for rectal bleeding and abdominal pain. Patient is pleasant sitting up comfortably in bed. He continues to endorse left lower quadrant pain and is having diarrhea. He denies any blood in his stool. He has not tried the advance diet as he states he is concerned about further abdominal discomfort. He did tolerate a clear liquid diet this morning for breakfast. He has no other complaints denying chest pain, shortness a breath, palpitations nausea/vomiting. Continue to encourage patient to use the oral pain regimen for his pain as he will not be able to discharge on the IV pain medication. He states understanding. Review of Systems Review of Systems: All systems reviewed & are unremarkable except as noted in HPI and below Exam Narrative: AF HR 59 RR 18 SPO2 96 BP 122/82 General: no acute respiratory distress who is nontoxic appearing, sitting up in bed HEENT: Normocephalic. Atraumatic. Extraocular movement intact. Sclera clear and anicteric. No facial asymmetry. Chest: Lungs are clear to auscultation bilaterally. No wheezes or crackles. CV: Heart was regular rate and rhythm. Abd: Abdomen was soft. Tender to palpation to LLQ without guarding. Nondistended. Positive bowel sounds. Ext: No clubbing, cyanosis, or edema. DP pulses bilaterally. Neuro: Patient is alert and oriented x3. Speech is clear. Objective Data Vital Signs Vital Signs: Vital Signs - 24 hr 03/31/25 11:01 03/31/25 12:48 03/31/25 12:58 Temperature 97.3 F L Pulse Rate 58 L 68 66 Respiratory Rate 18 12 19 Blood Pressure 144/89 H 130/88 135/75 Pulse Oximetry 98 98 99 Oxygen Delivery Room Air Room Air Room Air 03/31/25 13:08 03/31/25 14:45 03/31/25 21:47 Temperature 96.4 F L 97 F L Pulse Rate 65 66 56 L Respiratory Rate 13 16 20 Blood Pressure 137/82 153/89 H 153/89 H Pulse Oximetry 100 97 96 Oxygen Delivery Room Air 04/01/25 06:06 04/01/25 08:00 Temperature 97.6 F Pulse Rate 53 L Respiratory Rate 18 Blood Pressure 118/78 Pulse Oximetry 98 98 Oxygen Delivery Room Air Intake/Output Intake/Output: Intake & Output 03/29/25 03/30/25 03/31/25 04/01/25 23:59 23:59 23:59 23:59 Intake Total 1740 4570 1200 Balance 1740 4570 1200 Meds/Results Medications: Active Medications Generic Name Dose Route Start Last Admin Trade Name Freq PRN Reason Stop Dose Admin Estradiol 4 mg 03/30/25 17:00 03/31/25 17:06 Estradiol 1 Mg Tablet PO 4 mg BID ARTURO Administration Hydromorphone HCl 0.5 mg 04/01/25 09:05 Hydromorphone Hcl Inj (*Crx) 2 Mg/Ml Vial IV PUSH Q4H PRN Pain Rated 7-10 Sodium Chloride 1,000 mls @ 125 mls/hr 03/29/25 23:35 04/01/25 04:29 Normal Saline Iv IV CONT 125 mls/hr .Q8H ARTURO Administration Ondansetron HCl 4 mg 03/29/25 23:31 04/01/25 09:05 Ondansetron Inj 4 Mg/2 Ml Vial IV PUSH 4 mg Q4H PRN Administration Nausea Oxycodone HCl 5 mg 03/31/25 13:16 Oxycodone Hcl (*Crx) 5 Mg Tab Ir PO BID PRN Pain Rated 7-10 Pantoprazole Sodium 40 mg 03/30/25 21:00 03/31/25 20:16 Pantoprazole 40 Mg Tablet PO 40 mg HS ARTURO Administration Pregabalin 150 mg 03/30/25 17:00 03/31/25 17:07 Pregabalin (*Crx) 75 Mg Capsule PO 150 mg TID ARTURO Administration Spironolactone 100 mg 03/31/25 09:00 03/31/25 14:54 Spironolactone 50 Mg Tablet PO 100 mg DAILY ARTURO Administration Trazodone HCl 50 mg 03/30/25 14:57 Trazodone Hcl 50 Mg Tablet PO HS PRN sleep Radiology Results: ITS Impressions Abdomen/Pelvis CT 03/29/25 20:20 IMPRESSION: Very mild diverticular and pericolonic inflammatory change at the distal sigmoid in the deep pelvis, which may represent early/mild diverticulitis. Otherwise, no acute abdominopelvic process detected MRCP 03/30/25 19:38 IMPRESSION: 1. Status post cholecystectomy and right hemicolectomy with ileocolic anastomosis. Otherwise unremarkable MRI/MRCP. Labs Labs: Laboratory Results - last 24 hr 04/01/25 05:30 WBC 9.1 RBC 4.53 L Hgb 12.9 L Hct 38.8 L MCV 85.7 MCH 28.5 MCHC 33.2 RDW 15.3 H Plt Count 162 MPV 10.8 H Sodium 138 Potassium 4.1 Chloride 109 H Carbon Dioxide 24 Anion Gap 5 BUN 16 Creatinine 0.96 Estim Creat Clear Calc 112 Estimated GFR > 60 Glucose 114 H Calcium 8.6 Total Bilirubin 1.4 H AST 21 ALT 32 Alkaline Phosphatase 94 Total Protein 5.8 L Albumin 3.4 L Quality VTE Prophylaxis VTE prophylaxis: mechanical ordered
[2025-04-01] MEDS: HYDROmorphone HCL INJ (*CRX) 2 MG/ML VIAL 0.5 MG IV PUSH ×4 (09:48→22:35)
[2025-04-01] MEDS: PREGABALIN (*CRX) 75 MG CAPSULE 150 MG PO ×3 (09:50→17:03)
[2025-04-01] MEDS: SPIRONOLACTONE 50 MG TABLET 100 MG PO (09:51)
[2025-04-01] MEDS: PANTOPRAZOLE 40 MG TABLET PO (09:51)
[2025-04-01] MEDS: oxyCODONE HCL (*CRX) 5 MG TAB IR PO ×2 (10:49→23:49)
[2025-04-01 14:40] VITALS: BP 122/82; PULSE 59; RESP 18; TEMP 36.8; O2SAT 96
[2025-04-01 20:20] VITALS: BP 125/67; PULSE 64; RESP 18; TEMP 35.9; O2SAT 96
[2025-04-01] MEDS: MORPHINE SULFATE (*CRX) 15 MG TABCR PO (20:53)
[2025-04-02 04:40] VITALS: BP 97/58; PULSE 54; RESP 18; TEMP 36.6; O2SAT 97
[2025-04-02] MEDS: oxyCODONE HCL (*CRX) 5 MG TAB IR PO (04:50)
[2025-04-02] MEDS: SODIUM CHLORIDE 0.9% IV 1,000 ML 125 ML IV CONT (04:53)
[2025-04-02 06:28] LABS: Alanine Aminotransferase 27 U/L (6-50); Albumin Level 3.0 g/dL (3.5-5.1); Alkaline Phosphatase 85 U/L (38-126); Anion Gap 5 mmol/L (4-12); Aspartate Amino Transferase 17 U/L (17-59); Bilirubin,Total 1.7 mg/dL (0.2-1.3); Blood Urea Nitrogen 18 mg/dL (9-20); Calcium 8.0 mg/dL (8.4-10.2); Carbon Dioxide 22 mmol/L (22-30); Chloride 110 mmol/L (98-107); Estimated CRCL calculation 114 ml/min; Estimated Glomerular Filt Rate > 60; Glucose 88 mg/dL (65-110); Potassium 3.7 mmol/L (3.4-5.0); Sodium 137 mmol/L (137-145); Total Protein 5.1 g/dL (6.3-8.2)
[2025-04-02 06:39] LABS: Hematocrit 42.3 % (42.0-52.0); Hemoglobin 13.2 g/dL (14.0-18.0); Immature Platelet Fraction Pct 3.1 % (0.9-11.2); Mean Corpuscular HGB Conc 31.2 g/dl (32-36); Mean Corpuscular Hemoglobin 28.3 pg (26-34); Mean Corpuscular Volume 90.6 fl (80-100); Platelet Count Result 137 k/mm3 (150-375); Red Blood Count 4.67 M/mm3 (4.6-6.20); White Blood Count 6.2 K/mm3 (4.5-10.0)
[2025-04-02] MEDS: MORPHINE SULFATE (*CRX) 15 MG TABCR PO (09:08)
[2025-04-02] MEDS: PREGABALIN (*CRX) 75 MG CAPSULE 150 MG PO ×2 (09:08→12:25)
[2025-04-02] MEDS: SPIRONOLACTONE 50 MG TABLET 100 MG PO (09:08)
--- NOTE | 2025-04-02 12:02 | P.DS_ITS ---
DS: Admitting Diagnosis Discharge Date 04/02/2025 Admitting Diagnosis Acute crohns disease GI bleeding DS: Discharge Diagnosis Discharge Diagnosis (1) Acute Crohn's disease: Qualifiers: Digestive disease complication type: with rectal bleeding Qualified Code(s): K50.911 - Crohn's disease, unspecified, with rectal bleeding Code(s): K50.90 - Crohn's disease, unspecified, without complications Status: Acute (2) GI bleeding: Qualifiers: GI bleed type/associated pathology: anorectal hemorrhage Qualified Code(s): K62.5 - Hemorrhage of anus and rectum Code(s): K92.2 - Gastrointestinal hemorrhage, unspecified Status: Acute DS: Summary Hospital Course Reason for hospitalization: Acute crohns disease GI bleeding Hospital Course: 40 year old biological male transitioning to female (on estradiol, progesterone and spironolactone) with past medical history of crohns disease on a biologic s/p partial colectomy and testicular cancer s/p left orchiectomy and cisplatin chemotherapy presents to the hospital for rectal bleeding and abdominal pain. H/H remained stable. CT Abdomen/pelvis showed very mild diverticular and pericolonic inflammatory change at the distal sigmoid in the deep pelvis, which may represent early/mild diverticulitis. Otherwise, no acute abdominopelvic process detected. GI consulted. Patient started on steroids for concern of crohns flare. Colonoscopy performed and showed few medium diverticula in the sigmoid colon and a few small size uncomplicated internal hemorrhoids were seen in the rectum. Recommend DC steroids and follow up with primary GI in outpatient setting. Patients rectal bleeding resolved during admission. Per patient his primary GI was working him up for PSC concern and he needed an MRCP which he was now missing due to hospitalization. GI ordered an MRCP which showed s/p cholecystectomy and right hemicolectomy with ileocolic anastomosis otherwise unremarkable MRI/MRCP. Patient was able to advance back to a normal diet prior to discharge and had improvement in his abdominal discomfort. Patient has chronic pain related to crohs and neuropathy for which he sees pain management and is on morphine and oxycodone. He stated that he forgot his oxycodone for breakthrough pain at home in [place]. Patient given a small prescription of oxycodone for breakthrough pain until he is able to return home. Discussed with patient that he is not to drive or operate heavy machinery on this medication. He states understanding. Patient had no other complaints at time of discharge denying chest pain, palpitations, shortness of breath, nausea/vomiting and dizziness/lightheadedness. Patient discharged home in a stable condition. He is to follow-up with his primary GI upon returning home as well as his PCP. Status at Discharge Functional status at discharge: independent ambulation Time Spent with Patient Time attestation: Total time spent providing and/or coordinating discharge services: Time spent: Greater than 30 minutes Exam Narrative: AF HR 54 RR 18 Spo2 97 BP 97/58 General: no acute respiratory distress who is nontoxic appearing, sitting up in bed HEENT: Normocephalic. Atraumatic. Extraocular movement intact. Sclera clear and anicteric. No facial asymmetry. Chest: Lungs are clear to auscultation bilaterally. No wheezes or crackles. CV: Heart was regular rate and rhythm. Abd: Abdomen was soft. Slightly tender to palpation to LLQ without guarding. Nondistended. Positive bowel sounds. Ext: No clubbing, cyanosis, or edema. DP pulses bilaterally. Neuro: Patient is alert and oriented x3. Speech is clear. DS: Data Data Completed and Pending Completed studies during hospitalization: abdomen/pelvis ct mrcp Pending studies at discharge: Pending at discharge 03/31/25 12:37 Surgical [PTH] Routine Surgical [PTH] Routine Labs on day of discharge: Labs from last 24 hours 04/02/25 04/02/25 06:21 05:44 WBC 6.2 RBC 4.67 Hgb 13.2 L Hct 42.3 MCV 90.6 D MCH 28.3 MCHC 31.2 L RDW 15.5 H Plt Count 137 L MPV 10.4 % Immature Plt Fraction 3.1 Sodium 137 Potassium 3.7 Chloride 110 H Carbon Dioxide 22 Anion Gap 5 BUN 18 Creatinine 0.95 Estim Creat Clear Calc 114 Estimated GFR > 60 Glucose 88 Calcium 8.0 L Total Bilirubin 1.7 H AST 17 ALT 27 Alkaline Phosphatase 85 Total Protein 5.1 L Albumin 3.0 L Preliminary micro results at discharge 03/30/25 00:15 Blood Culture - Preliminary Blood 03/30/25 00:15 Blood Culture - Preliminary Blood Discharge Plan Discharge Attending physician on discharge: Lino Gimenez Consulting providers: Eula Cartwright Discharging Clinician: Eula Cartwright Anticipated Discharge Date/Time: 04/02/25 11:52 Patient Disposition: Home Activity: as tolerated Diet: as tolerated and low fiber Discharge Instructions: Discharge disposition: Patient admitted to the hospital for concern of a crohns flare and GI bleed GI evaluated patient Colonoscopy showed no evidence of active crohns Continue stelara as prescribed Eat well balanced meals Keep active Keep an eye on your stool, should your stool be black or dark purple, you should come back to the hospital Follow up with primary GI During admission patient underwent a MRCP for PSC workup and did nto indicate PSC at this time Take MRCP record to primary GI Patient has chronic pain and in from out of town Since you do not have your home oxycodone with you for breakthrough pain a small script was sent to the pharmacy Attached is information on this medication Do not drive or operate heavy machinery on this medication Take caution while standing, rising, or moving Change positions slowly taking a break between each position change If you standing feel dizzy sit back down and take a break Encouraged to continue with yearly vaccinations Return to the emergency department if he developed sudden shortness of breath, chest pain, nausea, vomiting, upset stomach or intractable diarrhea Return to the emergency department if you develop fever greater than 101.5 Follow-up with the primary care physician within 1-2 weeks Thank you for [facility] for your healthcare needs Patient Instructions: Oxycodone, Rapid Release (By mouth), Crohn Disease (DC) Patient Language: Armenian Stand Alone Forms: General Discharge Information Follow-up/Referrals: UNKNOWN,DOCTOR [Primary Care Provider] - 1 Week Discharge Medications: Continued estradiol 2 mg tablet 4 mg PO BID famotidine 20 mg tablet 20 mg PO BID PRN (Reason: gastric reflux) hydroxyzine HCl 25 mg tablet 25 mg PO Q6H PRN (Reason: anxiety) morphine 15 mg tablet extended release 15 mg PO Q12H PRN (Reason: pain (scale score 7-10)) spironolactone 50 mg tablet 100 mg PO DAILY trazodone 50 mg tablet 50 mg PO HS PRN (Reason: sleep) pregabalin 150 mg capsule 150 mg PO TID tizanidine 4 mg tablet 4 mg PO Q8H Patient Comments: Pt stated has not started yet progesterone 100 mg capsule 100 mg PO DAILY omeprazole 40 mg capsule,delayed release(DR/EC) 40 mg PO DAILY Patient Comments: HS oxycodone 5 mg tablet 5 mg PO BID PRN (Reason: pain) Qty: 6 0RF Discontinued prednisone 20 mg tablet 20 mg PO DAILY Patient Comments: Pt completed 7 day therapy on Friday03/28/25 Date of admission: 03/30/25 10:40 Primary Care Provider: UNKNOWN,DOCTOR Admitting Provider: Shruti Erickson Attending physician on admission: Shruti Erickson Condition: Stable Hospitalist MIPS Heart Failure (Exclusion) Patient has history of Heart Transplant or Left Ventricular Assistive Device?: No IF YES, STOP HERE Heart Failure (Qualifier) Patient has current or prior documentation of LVEF less than or equal to 40%, or mod/servere depressed LVSF?: No IF NO, STOP HERE
--- NOTE | 2025-04-02 13:06 | PC.NURSE ---
Nine 15 mg morphine prescription returned to patient.
== END 2025-04-02 13:55 | disposition home or self-care (01) | DRG 387 ==
LOC: ANHED 23:31 → ANH3MEDSUR 03-30 00:19
PROVIDERS: Internal Medicine Gastroenterology; Registered Nurse; Student in an Organized Health Care Education/Training Program; Admitting Provider Internal Medicine; Emergency Provider Physician Assistant; Visit Provider Internal Medicine
PROC: 0DJD8ZZ Inspection of Lower Intestinal Tract, Via Natural or Artificial Opening Endoscopic (ICD-10-PCS; CPT 45378; principal; 2025-03-31 15:00)
DX: K50.911 Crohn's disease, unspecified, with rectal bleeding (principal); G62.0 Drug-induced polyneuropathy; T45.1X5S Adverse effect of antineoplastic and immunosuppressive drugs, sequela; K64.8 Other hemorrhoids; Z90.49 Acquired absence of other specified parts of digestive tract; Z85.47 Personal history of malignant neoplasm of testis; Z90.79 Acquired absence of other genital organ(s)
CPT/HCPCS: 36415; 74176; 74183; 76376; 80053; 83605; 83690; 83735; 85025; 85027; 85055; 85610; 85730; 86140; 86850; 86900; 86901; 87040; 88305; 96365; 96375; 96376; 99285; A9270; A9577; G0378; J1171; J2003; J2250; J2270; J2405; J2543; J2704; J2919; J7030; J7120